=== PATIENT | female | born 1930 | race Caucasian/White ===

== ENCOUNTER 2022-04-16 19:29 | Inpatient (IN) ==
[2022-04-16] MEDS ORDERED: SODIUM CHLORIDE 0.9% 500 ML IV STA (19:39)
[2022-04-16] MEDS ORDERED: fentaNYL citrate 100 MCG/2 ML VIAL IV PRN (19:39)
--- NOTE | 2022-04-16 19:57 | Emergency Department Note ---
Impression & Plan Abdominal pain, acute, right upper quadrant, Acute cholecystitis, Abnormal LFTs, Acute hyponatremia ED Provider Note NAME: RICHIE ARREDONDO AGE: 89 SEX: F : 1930 ARRIVES VIA: Ambulance INFORMANT: Patient, EMS ED PROVIDER(S): Maximiliano Alejandra DO CHIEF COMPLAINT: Epigastric pain HPI: The patient is an 89-year-old female who presented to the emergency department for an evaluation of epigastric pain. She describes pain in her l ower chest and upper abdomen. She states the pain began almost a week ago. Its been intermittent. It waxes and wanes. The patient notices pain worsening after eating. She notices the pain in her back as well. She said no fever. She denies having any chest pain or trouble breathing. She is often seen by her family doctor. The pain worsened this evening so she called 911. She received Toradol and Zofran prior to arrival and at this time is pain-free. ROS: See above HPI for pertinent positives & negatives. A total of 10 systems reviewed and were otherwise negative. PAST MEDICAL HISTORY: See Below PAST SURGICAL HISTORY: See Below FAMILY HISTORY: See Below SOCIAL HISTORY: See Below HOME MEDICATIONS: See Below ALLERGIES: See Below VITALS: See Below PHYSICAL EXAMINATION: GENERAL: Patient is awake alert in no acute distress patient is resting comfortably and showing no signs of anxiety EYES: The conjunctivae are clear. The pupils are round and reactive. EARS, NOSE, MOUTH AND THROAT: The nose is without any evidence of any deformity. Mucous membranes are moist. Tongue is midline. NECK: The neck is nontender and supple. RESPIRATORY: Normal respiratory effort is noted there is no evidence of wheezing rhonchi or rales CARDIOVASCULAR: Regular rate and rhythm noted there no murmurs rubs or gallops normal S1 normal S2. GASTROINTESTINAL: The abdomen is soft and mildly distended. There is right upper quadrant and epigastric pain to palpation which is moderate. There is mild guarding in the right upper quadrant. MUSCULOSKELETAL/EXTREMITIES: There is no evidence of gross deformity full range of motion is noted in the hips and shoulders. SKIN: There is no obvious evidence of any rash. There are no petechiae, pallor or cyanosis noted. NEUROLOGIC: Patient is awake alert and oriented x3 MEDICAL DECISION MAKING: The patient is an 89-year-old female who presented to the emergency department for an evaluation of upper abdominal pain. The patient states that her pain is postprandial. The patient's history and physical exam due appear to be more consistent with gallbladder pathology. She has a very dilated gallbladder on CT. Given her laboratory findings I do feel this may be consistent with cholecystitis. [facility] the [facility] have agreed to evaluate the patient in the emergency department for further management and disposition. Triage Nursing notes reviewed. Prior medical records reviewed Vital Signs: reviewed and remarkable for elevated blood pressure. Differential diagnosis: Etiologies such as appendicitis, diverticulitis, obstruction, inflammatory bowel disease, renal colic, PUD, biliary pathology, pancreatitis, mesenteric ischemia, aortic pathology, infections, genitourinary, UTI, perforated viscus, as well as others were entertained. ER treatment provided: See below Diagnostics interpreted by me: ECG: EKG was obtained in the emergency department. My interpretation is normal sinus rhythm at 88 bpm. There is no ectopy. There is no acute ST segment abnormalities noted. LVH was noted by voltage criteria. This was compared to a tracing from October 31, 2018. No changes were noted. Cardiac Monitoring: An order was placed for continuous cardiac monitoring. The monitor shows a rate of 99 bpm with sinus rhythm. Laboratory studies: As stated above and show below. Imaging studies: See below Consultation(s): I discussed this case with Dr. Parks who [facility] I discussed this case with Jean-Claude Hankins who is on for the general surgical group. Past Med/Surg History Medical History (Updated 04/16/22 @ 23:29 by Maximiliano Alejandra DO) Hypertension Migraines Family History Other Family history non-contributory Social History Smoking Status: Never smoker Preferred Language: Turkmen Feels Safe at Home: Yes Allergies Allergies Allergy/AdvReac Type Severity Reaction Status Date / Time doxycycline Allergy Intermediate RED ALL Verified 04/16/22 20:11 OVER Sulfa (Sulfonamide Allergy Unknown CAN'T Verified 04/16/22 20:11 Antibiotics) REMEMBER Penicillins AdvReac Severe nausea/vomi Verified 04/16/22 20:11 ting Home Meds Home Medications Medication Instructions Recorded Confirmed Magnesium-Zinc 1 tab PO DAILY 10/31/18 04/16/22 ascorbic acid (vitamin C) 500 mg 500 mg PO DAILY 10/31/18 04/16/22 tablet (Vitamin C) levothyroxine 25 mcg tablet 25 mcg PO DAILYBB 10/31/18 04/16/22 lisinopril 30 mg tablet 30 mg PO DAILY 10/31/18 04/16/22 loratadine 10 mg tablet 10 mg PO DAILY PRN Allergy Symptoms 10/31/18 04/16/22 metoprolol tartrate 50 mg tablet 50 mg PO BID 10/31/18 04/16/22 omeprazole 20 mg capsule,delayed 20 mg PO BID 10/31/18 04/16/22 release polyethylene glycol 3350 17 17 g PO DAILY PRN Constipation 10/31/18 04/16/22 gram/dose oral powder riboflavin (vitamin B2) 400 mg 400 mg PO DAILY 10/31/18 04/16/22 tablet amlodipine 2.5 mg tablet 2.5 mg PO DAILY 04/16/22 04/16/22 nystatin 100,000 unit/gram topical 1 applic topical TID PRN Skin 04/16/22 04/16/22 powder Irritation Results & Data (ED) Vital Signs Vital Signs - 24 hr 04/16/22 19:37 04/16/22 19:37 04/16/22 19:37 Temperature 36.9 C Temperature Source Oral Pulse Rate 88 Pulse Rate [Apical] 88 Pulse Rhythm Regular Pulse Rhythm [Apical] Regular Pulse Strength Normal Pulse Strength [Apical] Normal Respiratory Rate 20 20 Respiratory Effort / Characteristics Non-Labored Non-Labored Respiratory Depth Normal Normal Respiratory Pattern Regular Regular Blood Pressure 191/86 H Blood Pressure [Right Arm] 191/86 H Blood Pressure Mean 121 Blood Pressure Mean [Right Arm] 121 Pulse Oximetry 96 96 96 Oxygen Delivery Method Room Air Room Air Room Air Sepsis Recent Fever Within 48 Hours No Sepsis New/Unexplained Change in Mental Status No Sepsis Action Taken by Nursing No Action Required 04/16/22 19:39 04/16/22 21:00 04/16/22 22:28 Temperature Temperature Source Pulse Rate Pulse Rate [Apical] 96 H 99 H Pulse Rhythm Pulse Rhythm [Apical] Regular Pulse Strength Pulse Strength [Apical] Normal Normal Respiratory Rate 19 19 Respiratory Effort / Characteristics Non-Labored Respiratory Depth Normal Normal Respiratory Pattern Regular Blood Pressure Blood Pressure [Right Arm] 169/72 H 171/105 H Blood Pressure Mean Blood Pressure Mean [Right Arm] 104 127 Pulse Oximetry 96 94 95 Oxygen Delivery Method Room Air Room Air Room Air Sepsis Recent Fever Within 48 Hours Sepsis New/Unexplained Change in Mental Status Sepsis Action Taken by Long Term Medications Current Medication List: was personally reviewed by me Laboratory Data Attestation: I reviewed the patient's lab results. Result diagrams: 04/16/22 19:45 04/16/22 21:32 Lab Results 04/16/22 04/16/22 04/16/22 Range/Units 19:45 19:45 19:45 WBC 15.21 H (4.8-10.8) K/ul RBC 4.75 (3.93-5.22) M/uL Hgb 13.9 (12.0-16.0) g/dl Hct 41.1 (34.1-44.9) % MCV 86.5 (80.0-100.0) fL MCH 29.3 (25.0-34.0) pg MCHC 33.8 (32.0-36.0) g/dL RDW Std Deviation 42.5 (36.4-46.3) fL RDW Coeff of Naresh 13.4 (11.5-14.5) % Plt Count 327 (130-400) K/uL MPV 10.2 (9.4-12.3) fL Immature Gran % (Auto) 0.3 % Neut % (Auto) 91.3 % Lymph % (Auto) 6.0 % Gaines % (Auto) 2.0 % Eos % (Auto) 0.1 % Baso % (Auto) 0.3 % Neut # (Auto) 13.89 H (1.4-6.5) K/uL Lymph # (Auto) 0.91 L (1.2-3.4) K/uL Gaines # (Auto) 0.30 (0.24-0.82) K/uL Eos # (Auto) 0.01 (0-0.50) K/uL Baso # (Auto) 0.05 (0-0.2) K/uL Immature Gran # (Auto) 0.05 H (0.00-0.02) K/uL PT Cancelled INR Cancelled APTT Cancelled PTT Ratio Cancelled Sodium TNP Potassium TNP Chloride 93 L (98-107) mmol/L Carbon Dioxide 22 (21-32) mmol/L Anion Gap TNP BUN 13 (6-23) mg/dl Creatinine 0.53 L (0.6-1.2) mg/dl Est Cr Clr Drug Dosing 107.1 ml/min Est GFR ( Amer) 97.6 ml/min Est GFR (Non-Af Amer) 84.2 ml/min BUN/Creatinine Ratio 24.5 H (10-20) Glucose 140 H (70-99(Fasting)) mg/dl Calcium 8.9 (8.5-10.1) mg/dl Magnesium (1.7-2.4) mg/dl Total Bilirubin 2.8 H (0.2-1.0) mg/dl AST TNP ALT 286 H (7-52) U/L Alkaline Phosphatase 325 H (34-104) U/L Troponin I High Sens 10.1 (0-14) pg/ml Total Protein 7.5 (6.0-8.3) gm/dl Albumin 4.1 (3.4-5.0) gm/dl Globulin 3.4 (2.5-4.0) gm/dl Albumin/Globulin Ratio 1.2 (0.9-2) Lipase 24 (11-82) U/L Urine Color Urine Appearance (Clear) Urine pH (4.5-7.5) Ur Specific [place] (1.000-1.030) Urine Protein (Negative) Urine Glucose (UA) (Negative) Urine Ketones (Negative) Urine Blood (Negative) Urine Nitrite (Negative) Urine Bilirubin (Negative) Urine Urobilinogen (Negative) Ur Leukocyte Esterase (Negative) SARS-CoV-2, RNA, NAAT (NEGATIVE) 04/16/22 04/16/22 04/16/22 Range/Units 19:53 21:32 21:32 WBC (4.8-10.8) K/ul RBC (3.93-5.22) M/uL Hgb (12.0-16.0) g/dl Hct (34.1-44.9) % MCV (80.0-100.0) fL MCH (25.0-34.0) pg MCHC (32.0-36.0) g/dL RDW Std Deviation (36.4-46.3) fL RDW Coeff of Naresh (11.5-14.5) % Plt Count (130-400) K/uL MPV (9.4-12.3) fL Immature Gran % (Auto) % Neut % (Auto) % Lymph % (Auto) % Gaines % (Auto) % Eos % (Auto) % Baso % (Auto) % Neut # (Auto) (1.4-6.5) K/uL Lymph # (Auto) (1.2-3.4) K/uL Gaines # (Auto) (0.24-0.82) K/uL Eos # (Auto) (0-0.50) K/uL Baso # (Auto) (0-0.2) K/uL Immature Gran # (Auto) (0.00-0.02) K/uL PT 11.4 INR 1.1 APTT 34.3 H PTT Ratio 1.2 Sodium 125 L Potassium 4.0 Chloride (98-107) mmol/L Carbon Dioxide (21-32) mmol/L Anion Gap BUN (6-23) mg/dl Creatinine (0.6-1.2) mg/dl Est Cr Clr Drug Dosing ml/min Est GFR ( Amer) ml/min Est GFR (Non-Af Amer) ml/min BUN/Creatinine Ratio (10-20) Glucose (70-99(Fasting)) mg/dl Calcium (8.5-10.1) mg/dl Magnesium (1.7-2.4) mg/dl Total Bilirubin (0.2-1.0) mg/dl AST 288 H ALT (7-52) U/L Alkaline Phosphatase (34-104) U/L Troponin I High Sens (0-14) pg/ml Total Protein (6.0-8.3) gm/dl Albumin (3.4-5.0) gm/dl Globulin (2.5-4.0) gm/dl Albumin/Globulin Ratio (0.9-2) Lipase (11-82) U/L Urine Color Urine Appearance (Clear) Urine pH (4.5-7.5) Ur Specific [place] (1.000-1.030) Urine Protein (Negative) Urine Glucose (UA) (Negative) Urine Ketones (Negative) Urine Blood (Negative) Urine Nitrite (Negative) Urine Bilirubin (Negative) Urine Urobilinogen (Negative) Ur Leukocyte Esterase (Negative) SARS-CoV-2, RNA, NAAT NEGATIVE (NEGATIVE) 04/16/22 04/16/22 Range/Units 21:32 22:22 WBC (4.8-10.8) K/ul RBC (3.93-5.22) M/uL Hgb (12.0-16.0) g/dl Hct (34.1-44.9) % MCV (80.0-100.0) fL MCH (25.0-34.0) pg MCHC (32.0-36.0) g/dL RDW Std Deviation (36.4-46.3) fL RDW Coeff of Naresh (11.5-14.5) % Plt Count (130-400) K/uL MPV (9.4-12.3) fL Immature Gran % (Auto) % Neut % (Auto) % Lymph % (Auto) % Gaines % (Auto) % Eos % (Auto) % Baso % (Auto) % Neut # (Auto) (1.4-6.5) K/uL Lymph # (Auto) (1.2-3.4) K/uL Gaines # (Auto) (0.24-0.82) K/uL Eos # (Auto) (0-0.50) K/uL Baso # (Auto) (0-0.2) K/uL Immature Gran # (Auto) (0.00-0.02) K/uL PT INR APTT PTT Ratio Sodium Potassium Chloride (98-107) mmol/L Carbon Dioxide (21-32) mmol/L Anion Gap BUN (6-23) mg/dl Creatinine (0.6-1.2) mg/dl Est Cr Clr Drug Dosing ml/min Est GFR ( Amer) ml/min Est GFR (Non-Af Amer) ml/min BUN/Creatinine Ratio (10-20) Glucose (70-99(Fasting)) mg/dl Calcium (8.5-10.1) mg/dl Magnesium 1.6 L (1.7-2.4) mg/dl Total Bilirubin (0.2-1.0) mg/dl AST ALT (7-52) U/L Alkaline Phosphatase (34-104) U/L Troponin I High Sens (0-14) pg/ml Total Protein (6.0-8.3) gm/dl Albumin (3.4-5.0) gm/dl Globulin (2.5-4.0) gm/dl Albumin/Globulin Ratio (0.9-2) Lipase (11-82) U/L Urine Color Yellow Urine Appearance Clear (Clear) Urine pH 7.0 (4.5-7.5) Ur Specific [place] 1.031 H (1.000-1.030) Urine Protein Negative (Negative) Urine Glucose (UA) Negative (Negative) Urine Ketones Negative (Negative) Urine Blood Negative (Negative) Urine Nitrite Negative (Negative) Urine Bilirubin Negative (Negative) Urine Urobilinogen Negative (Negative) Ur Leukocyte Esterase Negative (Negative) SARS-CoV-2, RNA, NAAT (NEGATIVE) Administered Medications Discontinued Medications Amlodipine Besylate (Amlodipine Besylate 5 Mg Tab) 2.5 mg PO NOW STA Stop: 04/16/22 22:10 Last Admin: 04/16/22 22:13 Dose: 2.5 mg Documented By: BREE Sodium Chloride (Nss) 500 mls @ 999 mls/hr IV .Q31M STA Stop: 04/16/22 20:09 Last Infusion: 04/16/22 20:30 Dose: 0 mls/hr Documented By: Admin: 04/16/22 19:57 Dose: 999 mls/hr Documented By: BREE Cefoxitin Sodium (Mefoxin) 2,000 mg in 60 mls @ 100 mls/hr IV NOW STA Stop: 04/16/22 21:41 Last Infusion: 04/16/22 21:59 Dose: 0 mls/hr Documented By: Admin: 04/16/22 21:18 Dose: 100 mls/hr Documented By: BREE Ioversol (Optiray 350 100ml) 87 ml IV ONCE ONE Stop: 04/16/22 21:01 Last Admin: 04/16/22 21:00 Dose: 87 ml Documented By: HEATHER Metoprolol Tartrate (Metoprolol Tartrate 50 Mg Tab) 50 mg PO NOW STA Stop: 04/16/22 22:15 Last Admin: 04/16/22 22:28 Dose: 50 mg Documented By: BREE Imaging Data Radiologist's Impression: Chest X-Ray 04/16/22 19:39 SINGLE VIEW CHEST CLINICAL HISTORY: Epigastric abdominal pain. FINDINGS: An AP, portable, upright chest radiograph is compared to study dated 10/31/2018. The cardiomediastinal silhouette is top normal for projection noting atherosclerotic calcification of the thoracic aorta. The mitral annulus is densely calcified. Chronic interstitial thickening similar to previous. The lungs and pleural spaces are clear. No pneumothorax is seen. The skeletal structures are osteopenic. The bony thorax is grossly intact. IMPRESSION: No active disease in the chest. ACT 112: Negative or not required by law. Electronically signed by: Brennen Venegas M.D. 04/16/2022 8:07 PM Patient: RICHIE ARREDONDO (Female) : [birth year] Status: ER Date: 04/16/22 21:03 Room #: History: abd pain Slices: [id number] Priors: Tech: Lindsey Mcguire @ [phone] Exams: CT ABDOMEN & PELVIS With Contrast Contrast: IV Amt: 87ml Accession Numbers: [id number] Referring Physician: REFERRED SELF Preliminary Findings Only See Final Report For Complete Findings CT ABDOMEN & PELVIS With Contrast: The gallbladder is very distended but shows no clear evidence of wall thickening or surrounding edema or fluid. Some high density is seen along with the medial wall of the gallbladder. This is not clearly stones, as this is not the dependent portion of the gallbladder. There is a large cystic mass in the pelvis centered slightly to the right of midline. This measures 10.3 x 14.0 x 9.1 cm. This is mostly homogeneous fluid density but shows some small calcifications in the wall. This is likely ovarian in nature. Recommend pelvic MR (preferred) or pelvic US to further characterize this cyst. Small to moderate sized hiatus hernia. No prior studies are available for comparison. Radiologist: Fredy Singh MD Study ready at 23:04 and initial results transmitted at 23:12 Discharge Plan Visit Data Chief Complaint: Abdominal Pain ED Provider: Maximiliano Alejandra Discharge Problem: Abdominal pain, acute, right upper quadrant, Acute cholecystitis, Abnormal LFTs, Acute hyponatremia Patient Disposition: Being Evaluated by Hospitalist Forms Stand Alone Forms: My [facility] Prescriptions Prescriptions: No Action levothyroxine 25 mcg tablet 25 mcg PO DAILYBB Rx Instructions: TAKE THIS MEDICATION AT LEAST 30 MINUTES BEFORE BREAKFAST OR ANY OTHER MEDICATIONS ascorbic acid (vitamin C) [Vitamin C] 500 mg Tablet 500 mg PO DAILY metoprolol tartrate 50 mg tablet 50 mg PO BID lisinopril 30 mg tablet 30 mg PO DAILY omeprazole 20 mg capsule,delayed release(DR/EC) 20 mg PO BID polyethylene glycol 3350 17 gram/dose Powder 17 g PO DAILY PRN (Reason: Constipation) loratadine 10 mg tablet 10 mg PO DAILY PRN (Reason: Allergy Symptoms) riboflavin (vitamin B2) 400 mg tablet 400 mg PO DAILY Magnesium-Zinc 1 tab PO DAILY amlodipine 2.5 mg tablet 2.5 mg PO DAILY nystatin 100,000 unit/gram powder 1 applic TOPICAL TID PRN (Reason: Skin Irritation) Referrals Referrals: Tony Hein MD [Primary Care Provider] -
[2022-04-16 20:07] LABS: Hematocrit (blood only) 41.1 % (34.1-44.9); Hemoglobin 13.9 g/dl (12.0-16.0); Mean Corpuscular Hemoglobin 29.3 pg (25.0-34.0); Mean Corpuscular Hgb Conc 33.8 g/dL (32.0-36.0); Mean Corpuscular Volume 86.5 fL (80.0-100.0); Mean Platelet Volume 10.2 fL (9.4-12.3); Platelet Count 327 K/uL (130-400); RDW Coefficient of Variation 13.4 % (11.5-14.5); RDW Standard Deviation 42.5 fL (36.4-46.3); Red Blood Count 4.75 M/uL (3.93-5.22); White Blood Count 15.21 K/ul (4.8-10.8)
--- NOTE | 2022-04-16 20:08 | XRay Report ---
SINGLE VIEW CHEST CLINICAL HISTORY: Epigastric abdominal pain. FINDINGS: An AP, portable, upright chest radiograph is compared to study dated 10/31/2018. The cardiome diastinal silhouette is top normal for projection noting atherosclerotic calcification of the thoraci c aorta. The mitral annulus is densely calcified. Chronic interstitial thickening similar to previous . The lungs and pleural spaces are clear. No pneumothorax is seen. The skeletal structures are osteop enic. The bony thorax is grossly intact. IMPRESSION: No active disease in the chest. ACT 112: Negative or not required by law. Electronically signed by: Brennen Venegas M.D. 04/16/2022 8:07 PM
[2022-04-16 20:35] LABS: Troponin I High Sensitivity 10.1 pg/ml (0-14)
[2022-04-16 20:38] LABS: Alanine Aminotransferase 286 U/L (7-52); Albumin Globulin Ratio 1.2 (0.9-2); Albumin Level 4.1 gm/dl (3.4-5.0); Alkaline Phosphatase 325 U/L (34-104); BUN Creatinine Ratio 24.5 (10-20); Bilirubin,Total 2.8 mg/dl (0.2-1.0); Blood Urea Nitrogen 13 mg/dl (6-23); Calcium 8.9 mg/dl (8.5-10.1); Carbon Dioxide 22 mmol/L (21-32); Chloride 93 mmol/L (98-107); Creatinine Clr Calc Pharmacy 107.1 ml/min; Est GFR (African American) 97.6 ml/min; Est GFR (Non-African American) 84.2 ml/min; Globulin 3.4 gm/dl (2.5-4.0); Glucose 140 mg/dl (70-99(Fasting)); Lipase 24 U/L (11-82); Total Protein 7.5 gm/dl (6.0-8.3)
[2022-04-16] MEDS ORDERED: OPTIRAY 350 100ml IV ONE (21:00)
[2022-04-16] MEDS ORDERED: cefOXitin 2,000 MG/60 ML BAG IV STA (21:06)
[2022-04-16 21:10] LABS: Basophils # (auto) 0.05 K/uL (0-0.2); Basophils % (auto) 0.3 %; Eosinophils # (auto) 0.01 K/uL (0-0.50); Eosinophils % (auto) 0.1 %; Immature Granulocytes # (auto) 0.05 K/uL (0.00-0.02); Immature Granulocytes % (auto) 0.3 %; Lymphocytes # (auto) 0.91 K/uL (1.2-3.4); Neutrophils # (auto) 13.89 K/uL (1.4-6.5); Neutrophils % (auto) 91.3 %
[2022-04-16 21:58] LABS: INR 1.1 (0.9-1.1); Partial Thromboplastin Ratio 1.2; Partial Thromboplastin Time 34.3 Seconds (21.0-31.0); Prothrombin Time 11.4 Seconds (9.0-12.0)
[2022-04-16] MEDS ORDERED: amLODIPine BESYLATE 5 MG TAB PO STA (22:09)
[2022-04-16] MEDS ORDERED: METOPROLOL TARTRATE 50 MG TAB PO STA (22:14)
[2022-04-16 22:30] LABS: Appearance Urine Clear (Clear); Bilirubin Urine Negative (Negative); Blood Urine Negative (Negative); Color Urine Yellow; Glucose Urine UA Negative (Negative); Ketones Urine Negative (Negative); Leukocyte Esterase Urine Negative (Negative); Nitrite Urine Negative (Negative); Protein Urine Negative (Negative); Specific Gravity Urine 1.031 (1.000-1.030); Urobilinogen Urine Negative (Negative)
--- NOTE | 2022-04-16 22:41 | History & Physical Report ---
Date of Service April 16, 2022 Assessment & Plan (1) Sepsis: Plan: Possible cholecystitis Rule out biliary duct obstruction given abnormal LFTs Hypertensive urgency secondary to discomfort, anxiety Acute on chronic hyponatremia secondary to illness hypothyroidism, euthyroid as of today's TSH hx GERD Hyperglycemia rule out DM Pelvic mass on initial CT read Medical telemetry given BP elevation Analgesia, antiemetic as needed, titrate home BP meds CS, Ertapenem Surgery consult Re: Possible cholecystitis (ER provider already in touch with service.) N.p.o. status recommended for now by service. MRCP Re: Abnormal LFTs Careful correction of sodium, hyponatremia work-up Pelvic ultrasound Re: Pelvic mass Further management pending above imaging results Check hemoglobin A1c DVT prophylaxis. Lovenox subcu Full code Patient daughter requesting updates from providers. Ms. Reina Resendiz, contact #[phone]. Text document was generated using [employer] voice recognition software. It may contain grammatical or spelling errors. Kindly contact undersigned for clarification of any documentation item in question. History of Present Illness Chief Complaint: Abdominal pain Primary Care Provider: Tony Hein MD History obtained from patient, family, and records. Medical history significant for hypertension, hypothyroidism, chronic hyponatremia, GERD, migraine, mood disorder. Last confinement 2017 for headache, uncontrolled hypertension. 6 days history of achy epigastric pain going to her chest somewhat worse after eating. Some chills. No shortness of breath. No headache symptoms. No prior episodes. Cefoxitin administered at the ER for possible cholecystitis. Highest SBP at the ER 190s. Medical History as above Surgical History : Cataract surgery Family History : Ovarian cancer, colon cancer, dementia Personal/Social history : Non-smoker, no EtOH intake, retired from cleaning work Allergies Allergy/AdvReac Type Severity Reaction Status Date / Time doxycycline Allergy Intermediate RED ALL Verified 04/16/22 20:11 OVER Sulfa (Sulfonamide Allergy Unknown CAN'T Verified 04/16/22 20:11 Antibiotics) REMEMBER Penicillins AdvReac Severe nausea/vomi Verified 04/16/22 20:11 ting Home Medications Medication Instructions Recorded Confirmed Type Magnesium-Zinc 1 tab PO DAILY 10/31/18 04/16/22 History ascorbic acid (vitamin C) 500 mg 500 mg PO DAILY 10/31/18 04/16/22 History tablet (Vitamin C) levothyroxine 25 mcg tablet 25 mcg PO DAILYBB 10/31/18 04/16/22 History lisinopril 30 mg tablet 30 mg PO DAILY 10/31/18 04/16/22 History loratadine 10 mg tablet 10 mg PO DAILY PRN Allergy Symptoms 10/31/18 04/16/22 History metoprolol tartrate 50 mg tablet 50 mg PO BID 10/31/18 04/16/22 History omeprazole 20 mg capsule,delayed 20 mg PO BID 10/31/18 04/16/22 History release polyethylene glycol 3350 17 17 g PO DAILY PRN Constipation 10/31/18 04/16/22 History gram/dose oral powder riboflavin (vitamin B2) 400 mg 400 mg PO DAILY 10/31/18 04/16/22 History tablet amlodipine 2.5 mg tablet 2.5 mg PO DAILY 04/16/22 04/16/22 History nystatin 100,000 unit/gram topical 1 applic topical TID PRN Skin 04/16/22 04/16/22 History powder Irritation Past Med/Surg History Medical History (Updated 04/18/22 @ 15:05 by Abebe Jarrett MD) Hypertension Migraines Family History Other Family history non-contributory Social History Smoking Status: Never smoker Hx Alcohol Use: No Hx Substance Use: No Preferred Language: Bulgarian Communication Ability: Effective Automobile [employer]or Required: No Beliefs That Will Affect Care: None Current Living Situation: Alone Other Information That Helps Us Care for You: No Feels Safe at Home: Yes Safety Concerns: Feels Safe At This Time Assistive Devices: Walker Review of Systems Review of Systems: As per HPI, all other systems reviewed and negative Physical Exam Physical Exam: GENERAL: uncomfortable, anxious, slightly hard of hearing, looks younger for stated age, no respiratory distress SKIN: Normal color, warm HEENT: Bespectacled, [place] palpebral conjunctivae, no ptosis, dry buccal mucosa NECK : Supple, no tenderness CHEST : CTA, no tenderness HEART : RRR, no obvious murmurs ABDOMEN: Some distention, epigastric tenderness EXTREMITIES : Minimal LE swelling, no LE tenderness, no other conspicuous deformities noted NEUROLOGIC : Coherent, no facial asymmetry, slightly hard of hearing, no other gross focality Results & Data Results & Data ([facility]) Vital Signs (Past 12 Hours) Vital Signs Temp Pulse Pulse Resp BP BP Pulse Ox 04/16/22 22:28 99 H 19 171/105 H 95 04/16/22 21:00 96 H 19 169/72 H 94 04/16/22 19:39 96 04/16/22 19:37 96 04/16/22 19:37 88 20 191/86 H 96 04/16/22 19:37 36.9 C 88 20 191/86 H 96 O2 Del Method 04/16/22 22:28 Room Air 04/16/22 21:00 Room Air 04/16/22 19:39 Room Air 04/16/22 19:37 Room Air 04/16/22 19:37 Room Air 04/16/22 19:37 Room Air Laboratory Results Laboratory Results WBC 15.21 K/ul (4.8-10.8) H 04/16/22 19:45 RBC 4.75 M/uL (3.93-5.22) 04/16/22 19:45 Hgb 13.9 g/dl (12.0-16.0) 04/16/22 19:45 Hct 41.1 % (34.1-44.9) 04/16/22 19:45 MCV 86.5 fL (80.0-100.0) 04/16/22 19:45 MCH 29.3 pg (25.0-34.0) 04/16/22 19:45 MCHC 33.8 g/dL (32.0-36.0) 04/16/22 19:45 RDW Std Deviation 42.5 fL (36.4-46.3) 04/16/22 19:45 RDW Coeff of Naresh 13.4 % (11.5-14.5) 04/16/22 19:45 Plt Count 327 K/uL (130-400) 04/16/22 19:45 MPV 10.2 fL (9.4-12.3) 04/16/22 19:45 Immature Gran % (Auto) 0.3 % 04/16/22 19:45 Neut % (Auto) 91.3 % 04/16/22 19:45 Lymph % (Auto) 6.0 % 04/16/22 19:45 [place] % (Auto) 2.0 % 04/16/22 19:45 Eos % (Auto) 0.1 % 04/16/22 19:45 Baso % (Auto) 0.3 % 04/16/22 19:45 Neut # (Auto) 13.89 K/uL (1.4-6.5) H 04/16/22 19:45 Lymph # (Auto) 0.91 K/uL (1.2-3.4) L 04/16/22 19:45 [place] # (Auto) 0.30 K/uL (0.24-0.82) 04/16/22 19:45 Eos # (Auto) 0.01 K/uL (0-0.50) 04/16/22 19:45 Baso # (Auto) 0.05 K/uL (0-0.2) 04/16/22 19:45 Immature Gran # (Auto) 0.05 K/uL (0.00-0.02) H 04/16/22 19:45 PT 11.4 Seconds (9.0-12.0) 04/16/22 21:32 INR 1.1 (0.9-1.1) 04/16/22 21:32 APTT 34.3 Seconds (21.0-31.0) H 04/16/22 21:32 PTT Ratio 1.2 04/16/22 21:32 Sodium 125 mmol/L (136-145) L 04/16/22 21:32 Potassium 4.0 mmol/L (3.5-5.1) 04/16/22 21:32 Chloride 93 mmol/L (98-107) L 04/16/22 19:45 Carbon Dioxide 22 mmol/L (21-32) 04/16/22 19:45 Anion Gap TNP 04/16/22 19:45 BUN 13 mg/dl (6-23) 04/16/22 19:45 Creatinine 0.53 mg/dl (0.6-1.2) L 04/16/22 19:45 Est Cr Clr Drug Dosing 107.1 ml/min 04/16/22 19:45 Est GFR ( Amer) 97.6 ml/min 04/16/22 19:45 Est GFR (Non-Af Amer) 84.2 ml/min 04/16/22 19:45 BUN/Creatinine Ratio 24.5 (10-20) H 04/16/22 19:45 Glucose 140 mg/dl (70-99(Fasting)) H 04/16/22 19:45 Calcium 8.9 mg/dl (8.5-10.1) 04/16/22 19:45 Magnesium 1.6 mg/dl (1.7-2.4) L 04/16/22 21:32 Total Bilirubin 2.8 mg/dl (0.2-1.0) H 04/16/22 19:45 AST 288 U/L (13-39) H 04/16/22 21:32 ALT 286 U/L (7-52) H 04/16/22 19:45 Alkaline Phosphatase 325 U/L (34-104) H 04/16/22 19:45 Troponin I High Sens 10.1 pg/ml (0-14) 04/16/22 19:45 Total Protein 7.5 gm/dl (6.0-8.3) 04/16/22 19:45 Albumin 4.1 gm/dl (3.4-5.0) 04/16/22 19:45 Globulin 3.4 gm/dl (2.5-4.0) 04/16/22 19:45 Albumin/Globulin Ratio 1.2 (0.9-2) 04/16/22 19:45 Lipase 24 U/L (11-82) 04/16/22 19:45 Urine Color Yellow 04/16/22 22:22 Urine Appearance Clear (Clear) 04/16/22 22:22 Urine pH 7.0 (4.5-7.5) 04/16/22 22:22 Ur Specific [place] 1.031 (1.000-1.030) H 04/16/22 22:22 Urine Protein Negative (Negative) 04/16/22 22:22 Urine Glucose (UA) Negative (Negative) 04/16/22 22:22 Urine Ketones Negative (Negative) 04/16/22 22: Urine Blood Negative (Negative) 04/16/22 22:22 Urine Nitrite Negative (Negative) 04/16/22 22:22 Urine Bilirubin Negative (Negative) 04/16/22 22:22 Urine Urobilinogen Negative (Negative) 04/16/22 22: Ur Leukocyte Esterase Negative (Negative) 04/16/22 22:22 SARS-CoV-2, RNA, NAAT NEGATIVE (NEGATIVE) 04/16/22 19:53 Impressions Chest X-Ray 04/16/22 19:39 SINGLE VIEW CHEST CLINICAL HISTORY: Epigastric abdominal pain. FINDINGS: An AP, portable, upright chest radiograph is compared to study dated 10/31/2018. The cardiomediastinal silhouette is top normal for projection noting atherosclerotic calcification of the thoracic aorta. The mitral annulus is densely calcified. Chronic interstitial thickening similar to previous. The lungs and pleural spaces are clear. No pneumothorax is seen. The skeletal structures are osteopenic. The bony thorax is grossly intact. IMPRESSION: No active disease in the chest. ACT 112: Negative or not required by law. Electronically signed by: Brennen Venegas M.D. 04/16/2022 8:[address] abdomen pelvis initial read: The gallbladder is verydistended but shows no clear evidence of wall thickening or surrounding edema or fluid. Some high densityis seen along with the medial wall of the gallbladder. This is not clearlystones, as this is not the dependent portion of the gallbladder. There is a large cystic mass in the pelvis centered slightlyto the right of midline. This measures 10.3 x 14.0 x 9.1 cm. This is mostlyhomogeneous fluid densitybut shows some small calcifications in the wall. This is likelyovarian in nature. Recommend pelvic MR (preferred) or pelvic US to further characterize this cyst. Small to moderate sized hiatus hernia. No prior studies are available for comparison. EKG as per my interpretation :Rate 90, NSR, LAD, LAFB, LVH, septal infarct, T wave abnormalities inferior leads
[2022-04-16] MEDS ORDERED: LORazepam 0.5 MG TAB PO PRN (22:52)
[2022-04-16] MEDS ORDERED: traMADol HCL 50 MG TABLET PO PRN (22:52)
[2022-04-16] MEDS ORDERED: MoRPHine SULFATE 2 MG/ML CARP IV PRN (22:54)
[2022-04-16] MEDS ORDERED: oxyCODONE HCL IR 5 MG TAB (IMMEDIATE RELEASE) PO PRN (22:56)
[2022-04-16] MEDS ORDERED: PROMETHAZINE HCL 6.25 MG in SODIUM CHLORIDE 0.9% 50 ML IV PRN (22:58)
[2022-04-16] MEDS ORDERED: SODIUM CHLORIDE 0.9% 1000ML 1,000 ML IV STA (22:58)
--- NOTE | 2022-04-16 23:09 | Surgery Consultation ---
Date of Consultation April 16, 2022 Assessment & Plan (1) Abdominal pain: I discussed the case with the treating emergency room physician he is having the patient admitted on the hospitalist service. I have also discussed the case with the hospitalist and as there is not clear-cut evidence of cholecystitis along with the patient's elevated LFTs they are planning on proceeding as follows: Serial labs will be followed Analgesia be provided Antiemetics will be provided Antibiotics in the form of ertapenem have been initiated N.p.o. status has been implemented IV fluids are being administered for hydration An MRCP will be ordered to further evaluate the biliary system Due to the cystic mass felt to be ovarian in nature a pelvic as well as transvaginal ultrasound have been requested for further evaluation Will await the results of the above studies as well as serial labs with further recommendations to follow based on these results. History of Present Illness Reason for Consultation: Abdominal pain History of Present Illness This is an 89-year-old female who presented to the emergency department secondary to epigastric pain. When asked to further describe the patient's symptoms she reported that she developed some diarrhea approximately 5 days ago and subsequently developed epigastric pain. She noticed that the pain seems to occur at night and often is times associated with meals. The patient denies any radiation of the pain and does note that in addition to being in the epigastric area is also located in the right upper quadrant. She has had associated nausea and vomiting. She denies any fevers, shakes, or chills she has never had abdominal surgery before. In the emergency department the patient had labs and imaging which I independent reviewed. A chest x-ray was negative for pneumonia. A CT scan of the abdomen and pelvis was performed. This showed a distended gallbladder but there is no clear evidence of gallbladder wall thickening or pericholecystic fluid. No clear gallstones were identified. There is also a large cystic mass in the pelvis measuring 10.3 x 4.0 x 9.1 cm. This is felt to be most likely ovarian in nature. Labs include a CBC her white blood cell count was elevated at 15.2. Hemoglobin, hematocrit, platelet count were normal. Chemistry profile showed sodium was 125. Her potassium was normal. BUN and creatinine were 13 and 0.5. The patient's total bilirubin was elevated at 2.8. Her AST and ALT were 288 and 286. Her alkaline phosphatase was 325. Cardiac enzymes were checked and were negative. A urinalysis was negative for infection. A COVID test was negative. The patient notes that she leads a very active lifestyle able to perform almost all of her housework independently. She says with her day-to-day activities she does not get chest pain or shortness of breath. At the time of my interview she was resting comfortably in bed and she was in no distress. Allergies Allergy/AdvReac Type Severity Reaction Status Date / Time doxycycline Allergy Intermediate RED ALL Verified 04/16/22 20:11 OVER Sulfa (Sulfonamide Allergy Unknown CAN'T Verified 04/16/22 20:11 Antibiotics) REMEMBER Penicillins AdvReac Severe nausea/vomi Verified 04/16/22 20:11 ting Home Medications Medication Instructions Recorded Confirmed Type Magnesium-Zinc 1 tab PO DAILY 10/31/18 04/16/22 History ascorbic acid (vitamin C) 500 mg 500 mg PO DAILY 10/31/18 04/16/22 History tablet (Vitamin C) levothyroxine 25 mcg tablet 25 mcg PO DAILYBB 10/31/18 04/16/22 History lisinopril 30 mg tablet 30 mg PO DAILY 10/31/18 04/16/22 History loratadine 10 mg tablet 10 mg PO DAILY PRN Allergy Symptoms 10/31/18 04/16/22 History metoprolol tartrate 50 mg tablet 50 mg PO BID 10/31/18 04/16/22 History omeprazole 20 mg capsule,delayed 20 mg PO BID 10/31/18 04/16/22 History release polyethylene glycol 3350 17 17 g PO DAILY PRN Constipation 10/31/18 04/16/22 History gram/dose oral powder riboflavin (vitamin B2) 400 mg 400 mg PO DAILY 10/31/18 04/16/22 History tablet amlodipine 2.5 mg tablet 2.5 mg PO DAILY 04/16/22 04/16/22 History nystatin 100,000 unit/gram topical 1 applic topical TID PRN Skin 04/16/22 04/16/22 History powder Irritation Patient History Medical History (Updated 04/16/22 @ 23:29 by Maximiliano Alejandra DO) Hypertension Migraines Family History Other Family history non-contributory Social History Smoking Status: Never smoker Preferred Language: Mongolian Feels Safe at Home: Yes Review of Systems Constitutional: no fever and no chills Eyes: no eye pain Ear, Nose, Mouth, Throat: no ear pain Respiratory: no cough and no dyspnea Cardiovascular: no chest pain Gastrointestinal: + abdominal pain, + nausea and + vomiting Genitourinary: no dysuria Musculoskeletal: no back pain Integumentary: no rash Neurologic: no localized weakness Physical Exam Constitutional: WD/WN, vitals as above Eyes: + anicteric sclerae ENMT: Ears: no hearing impairment and no external ear abnormality Mouth: no oropharynx abnormality Neck: trachea midline Respiratory: normal respiratory effort; no respiratory distress and no labored breathing Cardiovascular: Rate/Rhythm: regular rate and regular rhythm Gastrointestinal (Abdomen): Abdomen is soft, nonrigid, and minimally distended. Bowel sounds are present. There is no rebound tenderness or guarding. The patient did have pain with palpation in the epigastric area as well as the right upper quadrant. Musculoskeletal: No calf tenderness Skin: no rashes Neurologic: moves all extremities Psychiatric: A+Ox3, euthymic affect Results & Data ([facility]) Vital Signs (Past 12 Hours) Vital Signs Temp Pulse Pulse Resp BP BP Pulse Ox 04/16/22 22:28 99 H 19 171/105 H 95 04/16/22 21:00 96 H 19 169/72 H 94 04/16/22 19:39 96 04/16/22 19:37 96 04/16/22 19:37 88 20 191/86 H 96 04/16/22 19:37 36.9 C 88 20 191/86 H 96 O2 Del Method 04/16/22 22:28 Room Air 04/16/22 21:00 Room Air 04/16/22 19:39 Room Air 04/16/22 19:37 Room Air 04/16/22 19:37 Room Air 04/16/22 19:37 Room Air PG Care Time/CCT Total # of Minutes Spent Total Time Spent with Patient: Total time spent is greater than 50% in coordination of care (as documented) at patient's floor/unit and/or counseling patient: Coding Level of Care Code 46323 Inpt Consult Level 5 Diagnoses Abdominal pain R10.9
[2022-04-16] MEDS ORDERED: POLYETHYLENE (MIRALAX) 17 GM PACK PO PRN (23:39)
[2022-04-16] MEDS ORDERED: LORATADINE 10 MG TAB PO PRN (23:39)
[2022-04-16] MEDS ORDERED: PANTOprazole 40 MG TAB PO SCH (23:45)
[2022-04-17] MEDS: MAGNESIUM SULFATE / D5W 1 GM/100 ML BAG IV SCH ×2 (00:11→02:11)
[2022-04-17] MEDS: LEVOTHYROXINE SODIUM 25 MCG TABLET PO SCH (05:31)
--- NOTE | 2022-04-17 05:41 | Surgery Progress Note ---
Date of Service April 17, 2022 Assessment & Plan (1) Abdominal pain: Plan: The patient has been admitted on the hospitalist service: CT scan in the emergency department showed a distended gallbladder without pericholecystic fluid, gallbladder wall thickening, or definite gallstones. CT also showed a cystic mass that was felt to originate from the ovaries. The patient was also noted to have elevated LFTs I discussed the case with the primary service: The possibility of cholecystitis has not been ascertained Serial labs are to be followed Due to CT scan findings the primary service has ordered an MRCP as well as a pelvic/transvaginal ultrasound, both of these studies are pending Antibiotics in the form of ertapenem have been initiated Analgesics are being provided Antiemetics are being provided The patient is currently n.p.o. IV fluids are being administered for hydration Further recommendation will be made based on pending labs/imaging studies As above. Patient seen. Minimal abdominal pain but she is nauseated with some emesis this morning. She denies any major recent weight loss. LFTs worsened today as well as her leukocytosis. Will likely need laparoscopic cholecystectomy however awaiting GI consult and will likely need ERCP first. We will continue to follow along closely. Admission and Anticipated Discharge Date Admission Date: April 16, 2022 Subjective Patient is resting in bed. She currently denies any nausea or vomiting. She does note some minor pain in the epigastric area and right upper quadrant of her abdomen. Physical Exam Gastrointestinal (Abdomen): Abdomen is soft and nondistended. There is no rebound tenderness or guarding noted. With palpation of the epigastric and right upper quadrants patient did exhibit a small amount of pain. Results & Data ([facility]) Vital Signs (Past 12 Hours) Vital Signs Temp Pulse Pulse Pulse Resp BP BP 04/17/22 03:32 36.9 C 75 16 136/68 04/16/22 23:39 88 04/16/22 23:39 36.8 C 87 18 169/79 H 04/16/22 22:28 99 H 19 171/105 H 04/16/22 21:00 96 H 19 169/72 H 04/16/22 19:39 04/16/22 19:37 04/16/22 19:37 88 20 191/86 H 04/16/22 19:37 36.9 C 88 20 191/86 H Pulse Ox O2 Del Method 04/17/22 03:32 91 Room Air 04/16/22 23:39 04/16/22 23:39 95 Room Air 04/16/22 22:28 95 Room Air 04/16/22 21:00 94 Room Air 04/16/22 19:39 96 Room Air 04/16/22 19:37 96 Room Air 04/16/22 19:37 96 Room Air 04/16/22 19:37 96 Room Air PG Care Time/CCT Total # of Minutes Spent Total Time Spent with Patient: Total time spent is greater than 50% in coordination of care (as documented) at patient's floor/unit and/or counseling patient: Coding Level of Care Code 55232 Subseq Hosp Care Lvl 3 Diagnoses Abdominal pain R10.9
[2022-04-17 05:58] LABS: Basophils # (auto) 0.05 K/uL (0-0.2); Basophils % (auto) 0.3 %; Eosinophils # (auto) 0.03 K/uL (0-0.50); Eosinophils % (auto) 0.2 %; Hematocrit (blood only) 42.6 % (34.1-44.9); Hemoglobin 14.5 g/dl (12.0-16.0); Immature Granulocytes # (auto) 0.09 K/uL (0.00-0.02); Immature Granulocytes % (auto) 0.5 %; Lymphocytes # (auto) 1.15 K/uL (1.2-3.4); Lymphocytes % (auto) 6.4 %; Mean Corpuscular Hemoglobin 29.3 pg (25.0-34.0); Mean Corpuscular Volume 86.1 fL (80.0-100.0); Mean Platelet Volume 9.6 fL (9.4-12.3); Monocytes # (auto) 0.48 K/uL (0.24-0.82); Monocytes % (auto) 2.7 %; Neutrophils # (auto) 16.28 K/uL (1.4-6.5); Neutrophils % (auto) 89.9 %; Platelet Count 334 K/uL (130-400); RDW Coefficient of Variation 13.6 % (11.5-14.5); RDW Standard Deviation 42.2 fL (36.4-46.3); Red Blood Count 4.95 M/uL (3.93-5.22); White Blood Count 18.08 K/ul (4.8-10.8)
--- NOTE | 2022-04-17 06:19 | CT Scan Report ---
CT SCAN OF THE ABDOMEN AND PELVIS WITH IV CONTRAST CLINICAL HISTORY: Upper abdominal pain. COMPARISON STUDY: No priors. TECHNIQUE: Following the IV administration of 87 cc of Optiray 350, CT scan of the abdomen and pelvi s is performed from the lung bases to the proximal femora. Images are reviewed in the axial, sagittal , and coronal planes. IV contrast was administered without complication. A dose lowering technique wa s utilized adhering to the principles of ALARA. CT DOSE: 427.07 mGy.cm FINDINGS: Lung bases: The heart is normal in size and without pericardial effusion. The coronary arteries and m itral annulus are densely calcified. There is a moderate hiatal hernia. The lung bases are clear noti ng mild bibasilar scarring/atelectasis. Liver: The contrast-enhanced liver is normal in size, contour, and attenuation. There is no intrahepa tic biliary ductal dilatation. The hepatic veins and portal veins are patent. Gallbladder: The gallbladder is distended and there are small calcified gallstones. There is no CT ev idence of acute cholecystitis. Spleen: Normal in size and attenuation. Pancreas: Unremarkable. Adrenal glands: Unremarkable. Kidneys: The contrast enhanced kidneys are normal in size and without hydronephrosis. The kidneys enh ance symmetrically. Abdominal vasculature: The abdominal aorta is normal in course and caliber noting advanced atheroscle rotic calcification. Bowel: There is no bowel obstruction. Mild fecal retention is seen in the colon. A duodenal diverticu lum is incidentally noted. The appendix is well-visualized and normal. Peritoneum: There is no intraperitoneal free air or abdominal ascites. Lymphadenopathy: None. Pelvic viscera: The bladder is normal as visualized. The endometrium appears thickened for age, measu ring up to 6 mm in thickness. There is a 13.7 cm predominantly cystic lesion in the right adnexa, lik fritz related to the right ovary. There are small calcifications seen posteriorly. No enhancing nodular ity or soft tissue component is identified. Skeletal structures: The skeletal structures are osteopenic. There is mild to moderate lumbosacral sp ondylosis. No lytic or blastic lesions are seen. IMPRESSION: 1. Cholelithiasis within a distended gallbladder. There is no clear CT evidence of acute cholecystiti s. Correlate with clinical and laboratory findings. If there is clinical concern for acute cholecysti tis a right upper quadrant ultrasound should be considered. 2. There is a 13.7 cm largely simple appearing cystic lesion in the right adnexa, likely related to t he right ovary. No ovarian neoplasm is the diagnosis of exclusion. Additionally, the endometrium appe ars abnormally thickened for age. Gynecology evaluation is advised. 3. Moderate hiatal hernia. 4. Additional findings as above. ACT 112: Negative or not required by law. Electronically signed by: Brennen Venegas M.D. 04/17/2022 6:18 AM
[2022-04-17 06:24] LABS: Albumin Globulin Ratio 1.1 (0.9-2); Bilirubin,Total 4.9 mg/dl (0.2-1.0); Calcium 8.9 mg/dl (8.5-10.1); Creatinine Clr Calc Pharmacy 60.4 ml/min; Est GFR (African American) 93.7 ml/min; Est GFR (Non-African American) 80.8 ml/min; Globulin 3.6 gm/dl (2.5-4.0); Magnesium 2.5 mg/dl (1.7-2.4); Total Protein 7.6 gm/dl (6.0-8.3)
--- NOTE | 2022-04-17 07:01 | Communication Note ---
Date of Service: April 17, 2022 Patient hesitant to go for MRCP. Request for liver ultrasound Re: Abnormal LFTs Surgery provider recommended consulting GI after being given update.
[2022-04-17] MEDS: amLODIPine BESYLATE 5 MG TAB PO SCH (07:55)
[2022-04-17] MEDS: SODIUM CHLORIDE 0.9% 1000ML 1,000 ML IV SCH ×2 (07:55→16:56)
[2022-04-17] MEDS: METOPROLOL TARTRATE 50 MG TAB PO SCH ×2 (07:57→21:30)
[2022-04-17] MEDS: PANTOprazole 40 MG TAB PO SCH ×2 (07:57→21:30)
[2022-04-17] MEDS: lisinopril 10 MG TAB PO SCH (07:58)
[2022-04-17] MEDS: ERTAPENEM SODIUM 1,000 MG in SYRINGE 0 ML IV SCH (07:59)
[2022-04-17] MEDS: ENOXAPARIN INJ 30 MG/0.3 ML SYR SQ SCH (07:59)
[2022-04-17] MEDS ORDERED: ONDANSETRON INJ 2 MG/ML 2 ML VIAL IV PRN (08:52)
[2022-04-17] MEDS ORDERED: NON-FORMULARY MEDICATION (Omeprazole 20 mg capsule,delayed release(DR/EC)) PO SCH (09:00)
[2022-04-17] MEDS ORDERED: NON-FORMULARY MEDICATION (Riboflavin (Vitamin B2) 400 mg tablet) PO SCH (09:00)
--- NOTE | 2022-04-17 10:43 | Ultrasound Report ---
ULTRASOUND RIGHT UPPER QUADRANT ABDOMEN CLINICAL HISTORY: Elevated transaminases. COMPARISON STUDY: Abdominal CT dated 04/16/2022. TECHNIQUE: Real-time, grayscale, and color flow sonography of the right upper quadrant of the abdomen was performed. Images are reviewed in the transverse and longitudinal planes. FINDINGS: Liver: The liver is normal in size and echotexture. There is no intrahepatic biliary ductal dilatatio n. The main portal vein is patent. Gallbladder: The gallbladder is distended, and contains both gallstones and biliary sludge. There is no gallbladder wall thickening or pericholecystic fluid. A sonographic Walter's sign is reportedly ab sent. The common bile duct measures up to 0.4 cm in diameter. Pancreas: Visualized portions of the pancreatic head and body are normal in appearance. Right kidney: Survey images of the right kidney demonstrate normal size and echotexture. There is no hydronephrosis. Ascites: None. IMPRESSION: 1. Cholelithiasis and biliary sludge with no sonographic evidence of acute cholecystitis. If there is strong clinical concern for acute cholecystitis a nuclear hepatobiliary scan could be considered. 2. There is no intra or extrahepatic biliary ductal dilatation. ACT 112: Negative or not required by law. Electronically signed by: Bernnen Venegas M.D. 04/17/2022 10:41 AM
--- NOTE | 2022-04-17 10:44 | Ultrasound Report ---
ULTRASOUND OF THE PELVIS CLINICAL HISTORY: Cystic pelvic lesion. COMPARISON STUDY: Pelvic CT dated 04/16/2022. TECHNIQUE: Real-time, grayscale, and color flow sonography of the pelvis is performed transabdominall y. Images are reviewed in the transverse and longitudinal planes. FINDINGS: Uterus: The uterus is normal in size and heterogeneous in echotexture, measuring 7.4 x 2.4 x 5.1 cm. Endometrium: The endometrium is thickened for age, measuring up to 1.2 cm. Ovaries: There is a 14.2 x 9.9 x 9.7 cm, cystic lesion in the right hemipelvis. This is likely relate d to the right ovary. There are calcifications within the wall of this lesion with minimal nodularity . The left ovary was not visualized. Pelvis: There is no free fluid in the cul-de-sac. IMPRESSION: 1. Again seen is a 14.2 cm predominantly cystic lesion in the right adnexa, likely related to the rig ht ovary. An ovarian neoplasm is the diagnosis of exclusion. Gynecology follow up is recommended. 2. The endometrium is abnormally thickened for age measuring up to 1.2 cm. Gynecology follow-up is re commended. ACT 112: Negative or not required by law. Electronically signed by: Brennen Venegas M.D. 04/17/2022 10:43 AM
[2022-04-17] MEDS ORDERED: Nursing to Pharmacy Communication SCH (10:45)
--- NOTE | 2022-04-17 14:12 | Hospitalist Progress Note ---
Date of Service April 17, 2022 Assessment & Plan (1) Abdominal pain: (2) Cholelithiasis: Plan: Present on admission with RUQ abdominal pain associated with nausea with emesis this morning CT abd/pelvis showed cholelithiasis within a distended gallbladder. RUQ ultrasound showed cholelithiasis and biliary sludge with no sonographic evidence of acute cholecystitis. There is no intra or extrahepatic biliary ductal dilatation. Pt refused to go for the MRCP Surgery on board Continue abx with IV ertapenem Continue pain control and antiemetic Surgery waiting for GI evaluation before proceed with any intervention if needed Might consider to get HIDA scan Will keep NPO with sips water SIRS Met criteria on admission with tachycardia and leukocytosis received Cefoxitin in the ER Currently on IV ertapenem Blood cx pending will check procalcitonin Transaminitis Liver enzymes elevated with AST 288, ALT 286 and ALK 325 AST 203, ALT 255 and ALK 358 today RUQ ultrasound showed cholelithiasis and biliary sludge with no sonographic evid ence of acute cholecystitis. There is no intra or extrahepatic biliary ductal dilatation. Pt refused to go for MRCP Gastro on board Continue monitor LFT Hyponatremia Possible related to poor oral intake/vomiting Na 125 and urine osmolarity low on admission Na 128 today Continue gentle IVF Continue monitor BMP Right Adnexa mass Vaginal U/S showed 13.7 cm largely simple appearing cystic lesion in the right adnexa, likely related to the right ovary. Will need outpatient Gynecology evaluation Elevate glucose Hgba1c pending Continue monitor glucose DVT Lovenox subq CODE Status Full code Patient daughter requesting updates from providers. Ms. Reina Resendiz, contact #[phone]. Admission and Anticipated Discharge Date Admission Date: April 16, 2022 Subjective Pt was seen and examined for follw up of abdominal pain. Lying in bed with no acute distress Pt said that abdominal pain improves a little. she said that she vomited early She does not want to go for the MRCP because she does not like the idea to get inside the MRI marchine Denies any chest pain, palpitation, dizziness and SOB Review of Systems Review of Systems: All systems reviewed & are unremarkable except as noted in Subjective Physical Exam Physical Exam: General- No acute distress Head- atraumatic Eyes- PERRL, EOMI, ENT- oropharynx clear Neck- supple, no JVD Lungs- clear to auscultation Heart- regular rhythm; no murmur Abdomen- normal bowel sounds, +tenderness palpation Extremities- no calf tenderness Neuro- alert, oriented x 3; PERRL, EOMI; no facial palsy; no dysarthria Skin- warm & dry Results & Data Results & Data ([facility]) Vital Signs (Past 12 Hours) Vital Signs Temp Pulse Pulse Resp BP Pulse Ox O2 Del Method 04/17/22 10:45 36.6 C 67 18 131/73 92 Room Air 04/17/22 07:32 79 04/17/22 07:25 36.9 C 78 18 124/67 92 Room Air 04/17/22 03:32 36.9 C 75 16 136/68 91 Room Air
[2022-04-17] MEDS: ACETAMINOPHEN 500 MG TAB PO PRN (14:25)
[2022-04-18] MEDS: LEVOTHYROXINE SODIUM 25 MCG TABLET PO SCH (05:00)
[2022-04-18] MEDS: SODIUM CHLORIDE 0.9% 1000ML 1,000 ML IV SCH ×2 (05:00→20:25)
--- NOTE | 2022-04-18 05:10 | Electrocardiogram Report ---
Test Reason : Blood Pressure : / mmHG Vent. Rate : 088 BPM Atrial Rate : 088 BPM P-R Int : 154 ms QRS Dur : 090 ms QT Int : 352 ms P-R-T Axes : 050 -11 006 degrees QTc Int : 425 ms Poor data quality, interpretation may be adversely affected Normal sinus rhythm Possible Left atrial enlargement Left ventricular hypertrophy Cannot rule out Septal infarct , age undetermined Abnormal ECG When compared with ECG of 31-OCT-2018 18:23, Sinus rhythm is no longer with 2nd degree A-V block (Mobitz I) Minimal criteria for Septal infarct are now Present Confirmed by Shekhar Alonso ([id number]) on 04/18/2022 5:10:05 AM Referred By: REFERRED SELF Confirmed By:Shekhar Alonso
[2022-04-18 07:22] LABS: Estimated Average Glucose 111 mg/dl; Hemoglobin A1C 5.5 % (4.5-5.6)
[2022-04-18] MEDS: lisinopril 10 MG TAB PO SCH (07:53)
[2022-04-18] MEDS: amLODIPine BESYLATE 5 MG TAB PO SCH (07:53)
[2022-04-18] MEDS: METOPROLOL TARTRATE 50 MG TAB PO SCH ×2 (07:53→20:25)
[2022-04-18] MEDS: PANTOprazole 40 MG TAB PO SCH ×2 (07:53→20:26)
[2022-04-18] MEDS: ENOXAPARIN INJ 30 MG/0.3 ML SYR SQ SCH (07:55)
[2022-04-18 07:57] LABS: Hematocrit (blood only) 37.6 % (34.1-44.9); Hemoglobin 12.4 g/dl (12.0-16.0); Mean Corpuscular Hemoglobin 28.8 pg (25.0-34.0); Mean Corpuscular Volume 87.2 fL (80.0-100.0); Mean Platelet Volume 9.6 fL (9.4-12.3); Platelet Count 247 K/uL (130-400); RDW Coefficient of Variation 13.5 % (11.5-14.5); RDW Standard Deviation 43.5 fL (36.4-46.3); Red Blood Count 4.31 M/uL (3.93-5.22); White Blood Count 6.88 K/ul (4.8-10.8)
[2022-04-18 08:23] LABS: Albumin Globulin Ratio 1.2 (0.9-2); Albumin Level 3.4 gm/dl (3.4-5.0); BUN Creatinine Ratio 15.2 (10-20); Calcium 8.4 mg/dl (8.5-10.1); Creatinine Clr Calc Pharmacy 78.8 ml/min; Est GFR (African American) 102.2 ml/min; Est GFR (Non-African American) 88.2 ml/min; Globulin 2.9 gm/dl (2.5-4.0); Potassium 3.6 mmol/L (3.5-5.1); Total Protein 6.3 gm/dl (6.0-8.3)
--- NOTE | 2022-04-18 08:27 | Surgery Progress Note ---
Date of Service April 18, 2022 Assessment & Plan (1) Cholelithiasis: Plan: Clinically doing better. Awaiting input from gastroenterology. This morning's labs are still pending. She will likely need an ERCP and I would like to combine cholecystectomy at the same time so at her age we would only have 1 anesthesia. I will contact her daughter with the plan once gastroenterology sees her. She is n.p.o. so we could potentially do it later today. (2) Abnormal LFTs: Admission and Anticipated Discharge Date Admission Date: April 16, 2022 Subjective Patient seen. Feeling much better than yesterday. The pain and nausea have improved. Physical Exam Constitutional: WD/WN, vitals as above no acute distress and not ill appearing Eyes: PERRL, conjunctivae normal, anicteric sclerae EOM intact bilaterally ENMT: external ear and nose normal, oropharynx normal Ears: no hearing impairment Neck: trachea midline, no thyromegaly Respiratory: normal respiratory effort; no respiratory distress and does not use accessory muscles Cardiovascular: Rate/Rhythm: regular rate and regular rhythm Gastrointestinal (Abdomen): normal bowel sounds, soft, nontender, no hepatosplenomegaly Skin: no rashes, warm and dry Psychiatric: Orientation: alert, oriented x 3 and cooperative Results & Data ([facility]) Vital Signs (Past 12 Hours) Vital Signs Temp Pulse Pulse Resp BP Pulse Ox O2 Del Method 04/18/22 07:36 36.8 C 80 16 153/65 H 93 Room Air 04/18/22 07:35 73 04/18/22 04:00 36.7 C 83 16 161/77 H 94 Room Air 04/17/22 22:48 60 04/17/22 22:17 36.5 C 75 18 154/66 H 93 Room Air PG Care Time/CCT Total # of Minutes Spent Total Time Spent with Patient: Total time spent is greater than 50% in coordination of care (as documented) at patient's floor/unit and/or counseling patient: Coding Level of Care Code 52270 Subseq Hosp Care Lvl 3 Diagnoses Cholelithiasis K80.20 Abnormal LFTs R79.89
[2022-04-18] MEDS: ERTAPENEM SODIUM 1,000 MG in SYRINGE 0 ML IV SCH (08:30)
[2022-04-18] MEDS ORDERED: LORazepam 0.5 MG TAB PO ONE (09:15)
--- NOTE | 2022-04-18 09:41 | Gastrointestinal Consultation ---
Date of Consultation April 18, 2022 Assessment & Plan (1) Abnormal LFTs: (2) Cholelithiasis: (3) Abdominal pain, acute, right upper quadrant: Pt is a 89 yo female who initially presented w epigastric abd pain, diarrhea noted to have elevated WBC, LFTs and abd imaging studies findings of cholelithiasis wo obvious cholecystitis and normal CBD. She also has a large R ovarian cystic lesion ? neoplasm. Abd exam benign today, and her WBC has normalized, LFTs trending down possibly had passed gallstone - Obtain MRCP today - Continue IV antibx - Trend LFTs - Surgery following - Recommend [employer] consult for R ovarian cystic lesion and thickened endometrium - Attempted to contact daughter Betito) [phone] to give updates, no answer, left message for her to contact me back Supervising Physician Co-Signing Physician Notes Patient was seen and examined on 04/18 with RANDALL Triana whose note reflects our findings and plan. MRCP negative for choledocholithiasis. LFTs improving. Agree with surgery eval and mgt of primary issues. History of Present Illness Reason for Consultation: Elevated LFTs Requesting Physician: Dr. Cece Reyes Attending Physician: Dr. Nadia Geiger History of Present Illness Pt is a 89 yo female who presented with c/o achy epigastric abd pain associated with diarrhea x 1 episode wo gross GI bleeding. She denies associated fever, chills, CP, SOB, nausea, vomiting. However noticed that her urine is dark in color. On eval, noted to have elevated WBC, and elevated LFTs: Tbili 4.9, AST/ALT 200s, Alk phos 358. Abd imaing studies w CT and liver u/s showed gallstones w/o obvious cholecystitis, normal CBD. She does have a 14cm R ovarian cystic lesion w thickened endometrium. She was started on Ertapenem IV, WBC normalized now and LFTs are trending down today: Tbili 2, AST 76, ALK 141, Alk phos 257. Denies hx of liver dz in the family. Takes max 4 tabs of Tylenol in a day. Denies new meds or herbal supplements Allergies Allergy/AdvReac Type Severity Reaction Status Date / Time doxycycline Allergy Intermediate RED ALL Verified 04/16/22 20:11 OVER Sulfa (Sulfonamide Allergy Unknown CAN'T Verified 04/16/22 20:11 Antibiotics) REMEMBER Penicillins AdvReac Severe nausea/vomi Verified 04/16/22 20:11 ting Home Medications Medication Instructions Recorded Confirmed Type Magnesium-Zinc 1 tab PO DAILY 10/31/18 04/16/22 History ascorbic acid (vitamin C) 500 mg 500 mg PO DAILY 10/31/18 04/16/22 History tablet (Vitamin C) levothyroxine 25 mcg tablet 25 mcg PO DAILYBB 10/31/18 04/16/22 History lisinopril 30 mg tablet 30 mg PO DAILY 10/31/18 04/16/22 History loratadine 10 mg tablet 10 mg PO DAILY PRN Allergy Symptoms 10/31/18 04/16/22 History metoprolol tartrate 50 mg tablet 50 mg PO BID 10/31/18 04/16/22 History omeprazole 20 mg capsule,delayed 20 mg PO BID 10/31/18 04/16/22 History release polyethylene glycol 3350 17 17 g PO DAILY PRN Constipation 10/31/18 04/16/22 History gram/dose oral powder riboflavin (vitamin B2) 400 mg 400 mg PO DAILY 10/31/18 04/16/22 History tablet amlodipine 2.5 mg tablet 2.5 mg PO DAILY 04/16/22 04/16/22 History nystatin 100,000 unit/gram topical 1 applic topical TID PRN Skin 04/16/22 04/16/22 History powder Irritation Patient History Medical History (Updated 04/18/22 @ 15:05 by Abebe Jarrett MD) Hypertension Migraines Family History Other Family history non-contributory Social History Smoking Status: Never smoker Hx Alcohol Use: No Hx Substance Use: No Preferred Language: Serbian Communication Ability: Effective Multineedle Shirrer Required: No Beliefs That Will Affect Care: None Current Living Situation: Alone Other Information That Helps Us Care for You: No Feels Safe at Home: Yes Safety Concerns: Feels Safe At This Time Assistive Devices: Walker Review of Systems Review of Systems: All systems reviewed & are unremarkable except as noted in HPI & below Physical Exam Constitutional: WD/WN, vitals as above well groomed, cooperative and comfortable Eyes: PERRL, conjunctivae normal, anicteric sclerae ENMT: external ear and nose normal, oropharynx normal Respiratory: normal respiratory effort, lungs clear to auscultation Cardiovascular: RRR, no murmur, no edema Gastrointestinal (Abdomen): normal bowel sounds, soft, nontender, no hepatosplenomegaly Skin: no rashes, warm and dry no jaundice Psychiatric: A+Ox3, euthymic affect Lymphatic: no lymphedema Results & Data ([facility]) Vital Signs (Past 12 Hours) Vital Signs Temp Pulse Pulse Resp BP Pulse Ox O2 Del Method 04/18/22 07:36 36.8 C 80 16 153/65 H 93 Room Air 04/18/22 07:35 73 04/18/22 04:00 36.7 C 83 16 161/77 H 94 Room Air 04/17/22 22:48 60 04/17/22 22:17 36.5 C 75 18 154/66 H 93 Room Air
--- NOTE | 2022-04-18 14:36 | Magnetic Resonance Report ---
MR MRCP HISTORY: 89 years-old Female r/o CBD obstruction acute generalized abdominal pain with nausea and fe pa COMPARISON: CT abdomen and pelvis 04/16/2022 TECHNIQUE: MRCP without the use of IV contrast was obtained according to institutional protocol FINDINGS: Partially imaged cystic lesion of the pelvis redemonstrated measuring up to approximately 14 cm compr essing the urinary bladder. Multilevel degenerative changes of the spine are redemonstrated with elizabeth lar disc bulging most pronounced at L3-L4 and L4-L5. The heart is upper limits of normal in size. Mod erate sized hiatal hernia. The lung bases. Visualized portions of the spleen, pancreas and adrenal gl ands are unremarkable. The liver is within normal limits. No hydronephrosis. Mild perinephric strandi ng bilaterally. No abdominal aortic aneurysm or lymphadenopathy. No bowel obstruction, bowel wall thi ckening or abdominal free fluid identified. Cholelithiasis with gallbladder distention. No gallbladder wall thickening or pericholecystic fluid i dentified. The common bile duct is normal measuring up to 5 mm transversely. No choledocholithiasis i dentified. No pancreatic ductal dilation or pancreatic divisum identified. IMPRESSION: 1. Cholelithiasis with gallbladder distention. No gallbladder wall thickening or pericholecystic flui d identified to suggest acute cholecystitis. 2. No choledocholithiasis or biliary ductal dilation. 3. Large pelvic cystic mass redemonstrated, suspicious for an ovarian epithelial neoplasm. 4. Moderate sized hiatal hernia. ACT 112: Negative or not required by law. The above report was generated using voice recognition software. It may contain grammatical, syntax o r spelling errors. Electronically signed by: Rickey Gallagher M.D. 04/18/2022 2:35 PM
--- NOTE | 2022-04-18 15:06 | OB/GYN Consultation ---
Date of Consultation April 18, 2022 Assessment & Plan (1) Ovarian mass, right: Plan Will check Ca 125 will likely need to be seen by [facility]iography teacher oncology in [place] if she is a surgical candidate History of Present Illness Reason for Consultation: pelvic mass of ovary Requesting Physician: Tejas Attending Physician: Cece Reyes MD History of Present Illness 89 F [id number] post-menopausal who preseents to [facility] with sepsis and cholelithiasis. She had CT and pelvic ultrasound which shows 14.2 x 9.9 x 9.7 cm right ovarinan cyst with some calcification and minimal nodularity. There is no free fluid in the pelvis. No history of historiography teacher problems or PMPB. She is NPO to possibly remove her gall bladder. Allergies Allergy/AdvReac Type Severity Reaction Status Date / Time doxycycline Allergy Intermediate RED ALL Verified 04/16/22 20:11 OVER Sulfa (Sulfonamide Allergy Unknown CAN'T Verified 04/16/22 20:11 Antibiotics) REMEMBER Penicillins AdvReac Severe nausea/vomi Verified 04/16/22 20:11 ting Home Medications Medication Instructions Recorded Confirmed Type Magnesium-Zinc 1 tab PO DAILY 10/31/18 04/16/22 History ascorbic acid (vitamin C) 500 mg 500 mg PO DAILY 10/31/18 04/16/22 History tablet (Vitamin C) levothyroxine 25 mcg tablet 25 mcg PO DAILYBB 10/31/18 04/16/22 History lisinopril 30 mg tablet 30 mg PO DAILY 10/31/18 04/16/22 History loratadine 10 mg tablet 10 mg PO DAILY PRN Allergy Symptoms 10/31/18 04/16/22 History metoprolol tartrate 50 mg tablet 50 mg PO BID 10/31/18 04/16/22 History omeprazole 20 mg capsule,delayed 20 mg PO BID 10/31/18 04/16/22 History release polyethylene glycol 3350 17 17 g PO DAILY PRN Constipation 10/31/18 04/16/22 History gram/dose oral powder riboflavin (vitamin B2) 400 mg 400 mg PO DAILY 10/31/18 04/16/22 History tablet amlodipine 2.5 mg tablet 2.5 mg PO DAILY 04/16/22 04/16/22 History nystatin 100,000 unit/gram topical 1 applic topical TID PRN Skin 04/16/22 04/16/22 History powder Irritation Patient History Medical History (Updated 04/18/22 @ 15:05 by Abebe Jarrett MD) Hypertension Migraines Family History Other Family history non-contributory Social History Smoking Status: Never smoker Hx Alcohol Use: No Hx Substance Use: No Preferred Language: [place] Communication Ability: Effective Informaticist Required: No Beliefs That Will Affect Care: None Current Living Situation: Alone Other Information That Helps Us Care for You: No Feels Safe at Home: Yes Safety Concerns: Feels Safe At This Time Assistive Devices: Walker Review of Systems Review of Systems: All systems reviewed & are unremarkable except as noted in HPI & below Physical Exam Constitutional: WD/WN, vitals as above Gastrointestinal (Abdomen): normal bowel sounds, soft, nontender, no hepatosplenomegaly Inspection/Auscultation: abdomen normal to inspection abdomen is soft and non-tender. NO palpable mass. Some very mild discomfort with deep palpation. No rebound or guarding. No prior incisions abdominally. Musculoskeletal: Extremities: extremities normal to inspection Neurologic: patellar DTR's 2+ bilat, sensation intact Psychiatric: A+Ox3, euthymic affect Results & Data ([facility]) Vital Signs (Past 12 Hours) Vital Signs Temp Pulse Pulse Resp BP BP Pulse Ox 04/18/22 14:44 36.4 C L 96 H 18 148/74 H 95 04/18/22 10:40 36.6 C 72 18 133/64 92 04/18/22 07:36 36.8 C 80 16 153/65 H 93 04/18/22 07:35 73 04/18/22 04:00 36.7 C 83 16 161/77 H 94 O2 Del Method 04/18/22 14:44 Room Air 04/18/22 10:40 Room Air 04/18/22 07:36 Room Air 04/18/22 07:35 04/18/22 04:00 Room Air Laboratory Results Laboratory Results - last 72 hr 04/16/22 04/16/22 04/16/22 19:45 19:45 19:45 WBC 15.21 H RBC 4.75 Hgb 13.9 Hct 41.1 MCV 86.5 MCH 29.3 MCHC 33.8 RDW Std Deviation 42.5 RDW Coeff of Naresh 13.4 Plt Count 327 MPV 10.2 Immature Gran % (Auto) 0.3 Neut % (Auto) 91.3 Lymph % (Auto) 6.0 [place] % (Auto) 2.0 Eos % (Auto) 0.1 Baso % (Auto) 0.3 Neut # (Auto) 13.89 H Lymph # (Auto) 0.91 L [place] # (Auto) 0.30 Eos # (Auto) 0.01 Baso # (Auto) 0.05 Immature Gran # (Auto) 0.05 H PT Cancelled INR Cancelled APTT Cancelled PTT Ratio Cancelled Sodium TNP Potassium TNP Chloride 93 L Carbon Dioxide 22 Anion Gap TNP BUN 13 Creatinine 0.53 L Est Cr Clr Drug Dosing 107.1 Est GFR ( Amer) 97.6 Est GFR (Non-Af Amer) 84.2 BUN/Creatinine Ratio 24.5 H Glucose 140 H Estimat Average Glucose Hemoglobin A1c Osmolality Lactate Calcium 8.9 Magnesium Total Bilirubin 2.8 H AST TNP ALT 286 H Alkaline Phosphatase 325 H Troponin I High Sens 10.1 Total Protein 7.5 Albumin 4.1 Globulin 3.4 Albumin/Globulin Ratio 1.2 Lipase 24 Procalcitonin TSH Urine Color Urine Appearance Urine pH Ur Specific [place] Urine Protein Urine Glucose (UA) Urine Ketones Urine Blood Urine Nitrite Urine Bilirubin Urine Urobilinogen Ur Leukocyte Esterase Urine Osmolality Ur Random Sodium SARS-CoV-2, RNA, NAAT 04/16/22 04/16/22 04/16/22 19:53 20:22 21:32 WBC RBC Hgb Hct MCV MCH MCHC RDW Std Deviation RDW Coeff of Naresh Plt Count MPV Immature Gran % (Auto) Neut % (Auto) Lymph % (Auto) [place] % (Auto) Eos % (Auto) Baso % (Auto) Neut # (Auto) Lymph # (Auto) [place] # (Auto) Eos # (Auto) Baso # (Auto) Immature Gran # (Auto) PT 11.4 INR 1.1 APTT 34.3 H PTT Ratio 1.2 Sodium Potassium Chloride Carbon Dioxide Anion Gap BUN Creatinine Est Cr Clr Drug Dosing Est GFR ( Amer) Est GFR (Non-Af Amer) BUN/Creatinine Ratio Glucose Estimat Average Glucose Hemoglobin A1c Osmolality Lactate Calcium Magnesium Total Bilirubin AST ALT Alkaline Phosphatase Troponin I High Sens Total Protein Albumin Globulin Albumin/Globulin Ratio Lipase Procalcitonin TSH Urine Color Urine Appearance Urine pH Ur Specific [place] Urine Protein Urine Glucose (UA) Urine Ketones Urine Blood Urine Nitrite Urine Bilirubin Urine Urobilinogen Ur Leukocyte Esterase Urine Osmolality 230 L Ur Random Sodium SARS-CoV-2, RNA, NAAT NEGATIVE 04/16/22 04/16/22 04/16/22 21:32 21:32 22:22 WBC RBC Hgb Hct MCV MCH MCHC RDW Std Deviation RDW Coeff of Naresh Plt Count MPV Immature Gran % (Auto) Neut % (Auto) Lymph % (Auto) [place] % (Auto) Eos % (Auto) Baso % (Auto) Neut # (Auto) Lymph # (Auto) [place] # (Auto) Eos # (Auto) Baso # (Auto) Immature Gran # (Auto) PT INR APTT PTT Ratio Sodium 125 L Potassium 4.0 Chloride Carbon Dioxide Anion Gap BUN Creatinine Est Cr Clr Drug Dosing Est GFR ( Amer) Est GFR (Non-Af Amer) BUN/Creatinine Ratio Glucose Estimat Average Glucose Hemoglobin A1c Osmolality Lactate Calcium Magnesium 1.6 L Total Bilirubin AST 288 H ALT Alkaline Phosphatase Troponin I High Sens Total Protein Albumin Globulin Albumin/Globulin Ratio Lipase Procalcitonin TSH Urine Color Yellow Urine Appearance Clear Urine pH 7.0 Ur Specific [place] 1.031 H Urine Protein Negative Urine Glucose (UA) Negative Urine Ketones Negative Urine Blood Negative Urine Nitrite Negative Urine Bilirubin Negative Urine Urobilinogen Negative Ur Leukocyte Esterase Negative Urine Osmolality Ur Random Sodium SARS-CoV-2, RNA, NAAT 04/16/22 04/16/22 04/16/22 22:22 23:48 23:48 WBC RBC Hgb Hct MCV MCH MCHC RDW Std Deviation RDW Coeff of Naresh Plt Count MPV Immature Gran % (Auto) Neut % (Auto) Lymph % (Auto) [place] % (Auto) Eos % (Auto) Baso % (Auto) Neut # (Auto) Lymph # (Auto) [place] # (Auto) Eos # (Auto) Baso # (Auto) Immature Gran # (Auto) PT INR APTT PTT Ratio Sodium Potassium Chloride Carbon Dioxide Anion Gap BUN Creatinine Est Cr Clr Drug Dosing Est GFR ( Amer) Est GFR (Non-Af Amer) BUN/Creatinine Ratio Glucose Estimat Average Glucose Hemoglobin A1c Osmolality 268 L Lactate 1.3 Calcium Magnesium Total Bilirubin AST ALT Alkaline Phosphatase Troponin I High Sens Total Protein Albumin Globulin Albumin/Globulin Ratio Lipase Procalcitonin TSH Urine Color Urine Appearance Urine pH Ur Specific [place] Urine Protein Urine Glucose (UA) Urine Ketones Urine Blood Urine Nitrite Urine Bilirubin Urine Urobilinogen Ur Leukocyte Esterase Urine Osmolality Ur Random Sodium 48 SARS-CoV-2, RNA, NAAT 04/16/22 04/17/22 04/17/22 23:48 05:40 05:40 WBC 18.08 H RBC 4.95 Hgb 14.5 Hct 42.6 MCV 86.1 MCH 29.3 MCHC 34.0 RDW Std Deviation 42.2 RDW Coeff of Naresh 13.6 Plt Count 334 MPV 9.6 Immature Gran % (Auto) 0.5 Neut % (Auto) 89.9 Lymph % (Auto) 6.4 [place] % (Auto) 2.7 Eos % (Auto) 0.2 Baso % (Auto) 0.3 Neut # (Auto) 16.28 H Lymph # (Auto) 1.15 L [place] # (Auto) 0.48 Eos # (Auto) 0.03 Baso # (Auto) 0.05 Immature Gran # (Auto) 0.09 H PT INR APTT PTT Ratio Sodium 128 L Potassium 4.0 Chloride 94 L Carbon Dioxide 25 Anion Gap 9 BUN 9 Creatinine 0.60 Est Cr Clr Drug Dosing 60.4 Est GFR ( Amer) 93.7 Est GFR (Non-Af Amer) 80.8 BUN/Creatinine Ratio 15.0 Glucose 130 H Estimat Average Glucose Hemoglobin A1c Osmolality Lactate Calcium 8.9 Magnesium 2.5 H Total Bilirubin 4.9 H D AST 203 H ALT 255 H Alkaline Phosphatase 358 H Troponin I High Sens Total Protein 7.6 Albumin 4.0 Globulin 3.6 Albumin/Globulin Ratio 1.1 Lipase Procalcitonin TSH 1.709 Urine Color Urine Appearance Urine pH Ur Specific [place] Urine Protein Urine Glucose (UA) Urine Ketones Urine Blood Urine Nitrite Urine Bilirubin Urine Urobilinogen Ur Leukocyte Esterase Urine Osmolality Ur Random Sodium SARS-CoV-2, RNA, NAAT 04/17/22 04/18/22 04/18/22 05:40 07:26 07:26 WBC 6.88 RBC 4.31 Hgb 12.4 Hct 37.6 MCV 87.2 MCH 28.8 MCHC 33.0 RDW Std Deviation 43.5 RDW Coeff of Naresh 13.5 Plt Count 247 MPV 9.6 Immature Gran % (Auto) Neut % (Auto) Lymph % (Auto) [place] % (Auto) Eos % (Auto) Baso % (Auto) Neut # (Auto) Lymph # (Auto) [place] # (Auto) Eos # (Auto) Baso # (Auto) Immature Gran # (Auto) PT INR APTT PTT Ratio Sodium 133 L Potassium 3.6 Chloride 101 Carbon Dioxide 25 Anion Gap 7 BUN 7 Creatinine 0.46 L Est Cr Clr Drug Dosing 78.8 Est GFR ( Amer) 102.2 Est GFR (Non-Af Amer) 88.2 BUN/Creatinine Ratio 15.2 Glucose 86 Estimat Average Glucose 111 Hemoglobin A1c 5.5 Osmolality Lactate Calcium 8.4 L Magnesium Total Bilirubin 2.0 H D AST 76 H ALT 141 H Alkaline Phosphatase 257 H Troponin I High Sens Total Protein 6.3 Albumin 3.4 Globulin 2.9 Albumin/Globulin Ratio 1.2 Lipase Procalcitonin TSH Urine Color Urine Appearance Urine pH Ur Specific [place] Urine Protein Urine Glucose (UA) Urine Ketones Urine Blood Urine Nitrite Urine Bilirubin Urine Urobilinogen Ur Leukocyte Esterase Urine Osmolality Ur Random Sodium SARS-CoV-2, RNA, NAAT 04/18/22 07:26 WBC RBC Hgb Hct MCV MCH MCHC RDW Std Deviation RDW Coeff of Naresh Plt Count MPV Immature Gran % (Auto) Neut % (Auto) Lymph % (Auto) [place] % (Auto) Eos % (Auto) Baso % (Auto) Neut # (Auto) Lymph # (Auto) [place] # (Auto) Eos # (Auto) Baso # (Auto) Immature Gran # (Auto) PT INR APTT PTT Ratio Sodium Potassium Chloride Carbon Dioxide Anion Gap BUN Creatinine Est Cr Clr Drug Dosing Est GFR ( Amer) Est GFR (Non-Af Amer) BUN/Creatinine Ratio Glucose Estimat Average Glucose Hemoglobin A1c Osmolality Lactate Calcium Magnesium Total Bilirubin AST ALT Alkaline Phosphatase Troponin I High Sens Total Protein Albumin Globulin Albumin/Globulin Ratio Lipase Procalcitonin 0.54 H TSH Urine Color Urine Appearance Urine pH Ur Specific [place] Urine Protein Urine Glucose (UA) Urine Ketones Urine Blood Urine Nitrite Urine Bilirubin Urine Urobilinogen Ur Leukocyte Esterase Urine Osmolality Ur Random Sodium SARS-CoV-2, RNA, NAAT
--- NOTE | 2022-04-18 16:17 | Hospitalist Progress Note ---
Date of Service April 18, 2022 Assessment & Plan (1) Abdominal pain: (2) Cholelithiasis: Plan: Present on admission with RUQ abdominal pain associated with nausea with emesis this morning CT abd/pelvis showed cholelithiasis within a distended gallbladder. RUQ ultrasound showed cholelithiasis and biliary sludge with no sonographic evidence of acute cholecystitis. There is no intra or extrahepatic biliary ductal dilatation. MRCP showed cholelithiasis with gallbladder distention. No gallbladder wall thickening or pericholecystic fluid identified to suggest acute cholecystitis. Surgery on board Continue abx with IV ertapenem Continue pain control and antiemetic Surgery waiting for GI evaluation before proceed with any intervention if needed Will keep NPO with sips water Gastro on board Will discuss with gastro SIRS Met criteria on admission with tachycardia and leukocytosis Procalcitonin elevated WBC within normal limit today received Cefoxitin in the ER Currently on IV ertapenem Blood cx no growth Continue monitor Transaminitis Liver enzymes elevated with AST 288, ALT 286 and ALK 325 AST 76, ALT 141 and ALK 257 today RUQ ultrasound showed cholelithiasis and biliary sludge with no sonographic evidence of acute cholecystitis. There is no intra or extrahepatic biliary ductal dilatation. Gastro on board MRCP showed cholelithiasis with gallbladder distention. No gallbladder wall thickening or pericholecystic fluid identified to suggest acute cholecystitis. Continue monitor LFT Hyponatremia Possible related to poor oral intake/vomiting Na 125 and urine osmolarity low on admission Na 133 today Continue gentle IVF Continue monitor BMP Right Adnexa mass Vaginal U/S showed 13.7 cm largely simple appearing cystic lesion in the right adnexa, likely related to the right ovary. MRCP showed Large pelvic cystic mass redemonstrated, suspicious for an ovarian epithelial neoplasm. Gynecology consulted Will check Ca 125 will likely need to be seen by [facility] oncology in [place] if she is a surgical candidate Elevate glucose Hgba1c 5.5 Continue monitor glucose DVT Lovenox subq CODE Status Full code Patient daughter requesting updates from providers. Orion Reina Resendiz, contact #[phone]. Admission and Anticipated Discharge Date Admission Date: April 16, 2022 Subjective Pt was seen and examine for follow up of abdominal pain and liver enzymes Sitting in chair with no acute distress Pt said that abdominal pain improves She agreed to go for the MRCP today Denies any chest pain, palpitation, dizziness and SOB Review of Systems Review of Systems: All systems reviewed & are unremarkable except as noted in Subjective Physical Exam Physical Exam: General- No acute distress Head- atraumatic Eyes- PERRL, EOMI, ENT- oropharynx clear Neck- supple, no JVD Lungs- clear to auscultation Heart- regular rhythm; no murmur Abdomen- normal bowel sounds, +mild tenderness palpation Extremities- no calf tenderness Neuro- alert, oriented x 3; PERRL, EOMI; no facial palsy; no dysarthria Skin- warm & dry Results & Data Results & Data ([facility]) Vital Signs (Past 12 Hours) Vital Signs Temp Pulse Pulse Resp BP BP Pulse Ox 04/18/22 14:44 36.4 C L 96 H 18 148/74 H 95 04/18/22 10:40 36.6 C 72 18 133/64 92 04/18/22 07:36 36.8 C 80 16 153/65 H 93 04/18/22 07:35 73 O2 Del Method 04/18/22 14:44 Room Air 04/18/22 10:40 Room Air 04/18/22 07:36 Room Air 04/18/22 07:35
[2022-04-19] MEDS: LEVOTHYROXINE SODIUM 25 MCG TABLET PO SCH (06:07)
[2022-04-19 07:51] LABS: Albumin Globulin Ratio 1.1 (0.9-2); Albumin Level 3.2 gm/dl (3.4-5.0); BUN Creatinine Ratio 17.5 (10-20); Bilirubin,Total 1.1 mg/dl (0.2-1.0); Calcium 8.4 mg/dl (8.5-10.1); Creatinine Clr Calc Pharmacy 90.9 ml/min; Est GFR (Non-African American) 92.3 ml/min; Globulin 2.8 gm/dl (2.5-4.0); Potassium 3.5 mmol/L (3.5-5.1)
[2022-04-19] MEDS: SODIUM CHLORIDE 0.9% 1000ML 1,000 ML IV SCH ×2 (07:51→18:11)
[2022-04-19] MEDS: PANTOprazole 40 MG TAB PO SCH ×2 (07:51→21:22)
[2022-04-19] MEDS: METOPROLOL TARTRATE 50 MG TAB PO SCH ×2 (07:52→21:22)
[2022-04-19] MEDS: amLODIPine BESYLATE 5 MG TAB PO SCH (07:52)
[2022-04-19] MEDS: lisinopril 10 MG TAB PO SCH (07:52)
--- NOTE | 2022-04-19 08:15 | Surgery Progress Note ---
Date of Service April 19, 2022 Assessment & Plan (1) Cholelithiasis: Plan: Appears as though she likely passed a biliary stone. Her LFTs are trending towards normal and MRCP was negative. I discussed with her as well as her daughter regarding elective cholecystectomy versus observation versus discharge was set up for elective down the road. They would both prefer to have her gallbladder removed this admission and I think this is reasonable particularly since she was so symptomatic. We discussed the risks of the surgery which include bleeding infection injury to another organ blood clots DVT PE ND CVA etc. Following all this I answered their questions. We will proceed this afternoon with laparoscopic cholecystectomy. (2) Abdominal pain, acute, right upper quadrant: (3) Abnormal LFTs: Admission and Anticipated Discharge Date Admission Date: April 16, 2022 Subjective Patient seen. She is feeling much better and currently asymptomatic. MRCP revealed there is no bile duct stones. Her lab work is all improving. Physical Exam Constitutional: WD/WN, vitals as above no acute distress and not ill appearing Eyes: PERRL, conjunctivae normal, anicteric sclerae EOM intact bilaterally ENMT: external ear and nose normal, oropharynx normal Ears: no hearing impairment Neck: trachea midline, no thyromegaly Respiratory: normal respiratory effort; no respiratory distress and does not use accessory muscles Cardiovascular: Rate/Rhythm: regular rate and regular rhythm Gastrointestinal (Abdomen): normal bowel sounds, soft, nontender, no hepatosplenomegaly Skin: no rashes, warm and dry Psychiatric: Orientation: alert, oriented x 3 and cooperative Results & Data ([facility]) Vital Signs (Past 12 Hours) Vital Signs Temp Pulse Pulse Resp BP BP Pulse Ox 04/18/22 23:00 04/19/22 07:32 36.3 C L 83 18 160/65 H 91 04/19/22 03:29 37.0 C 80 16 157/66 H 92 04/19/22 00:00 81 04/18/22 23:25 36.7 C 81 18 158/69 H 92 Pulse Ox O2 Del Method O2 Del Method 04/18/22 23:00 92 Room Air 04/19/22 07:32 Room Air 04/19/22 03:29 Room Air 04/19/22 00:00 04/18/22 23:25 Room Air PG Care Time/CCT Total # of Minutes Spent Total Time Spent with Patient: Total time spent is greater than 50% in coordination of care (as documented) at patient's floor/unit and/or counseling patient: Coding Level of Care Code 79952 Subseq Hosp Care Lvl 3 Diagnoses Cholelithiasis K80.20 Abdominal pain, acute, right upper quadrant R10.11 Abnormal LFTs R79.89
--- NOTE | 2022-04-19 08:35 | Communication Note ---
Date of Service: April 19, 2022 GI note: MRCP wo choledocholithiasis or biliary ductal dilation. LFTs trending down. No indication for EUS/ERCP. Surgery to proceed with cholecystectomy. Can consider intraop cholangiogram. GI to sign off; pls recall prn
[2022-04-19] MEDS: ERTAPENEM SODIUM 1,000 MG in SYRINGE 0 ML IV SCH (08:53)
--- NOTE | 2022-04-19 10:12 | Anesthesiology Consultation ---
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 Surgery Operation Date: 04/19/22 09:10 Proposed Procedures p Laparoscopic Cholecystectomy - Jonathon Breen DO Height/Weight Height: 5 ft 3 in Weight: 72.4 kg Allergies Allergy/AdvReac Type Severity Reaction Status Date / Time doxycycline Allergy Intermediate RED ALL Verified 04/16/22 20:11 OVER Sulfa (Sulfonamide Allergy Unknown CAN'T Verified 04/16/22 20:11 Antibiotics) REMEMBER Penicillins AdvReac Severe nausea/vomi Verified 04/16/22 20:11 ting Medications Home Medications Medication Instructions Recorded Confirmed Last Taken Magnesium-Zinc 1 tab PO DAILY 10/31/18 04/16/22 04/16/22 ascorbic acid (vitamin C) 500 mg 500 mg PO DAILY 10/31/18 04/16/22 04/16/22 tablet (Vitamin C) levothyroxine 25 mcg tablet 25 mcg PO DAILYBB 10/31/18 04/16/22 04/16/22 lisinopril 30 mg tablet 30 mg PO DAILY 10/31/18 04/16/22 04/16/22 loratadine 10 mg tablet 10 mg PO DAILY PRN Allergy Symptoms 10/31/18 04/16/22 Unknown metoprolol tartrate 50 mg tablet 50 mg PO BID 10/31/18 04/16/22 04/16/22 08:00 omeprazole 20 mg capsule,delayed 20 mg PO BID 10/31/18 04/16/22 04/16/22 release polyethylene glycol 3350 17 17 g PO DAILY PRN Constipation 10/31/18 04/16/22 Unknown gram/dose oral powder riboflavin (vitamin B2) 400 mg 400 mg PO DAILY 10/31/18 04/16/22 04/16/22 tablet amlodipine 2.5 mg tablet 2.5 mg PO DAILY 04/16/22 04/16/22 04/16/22 nystatin 100,000 unit/gram topical 1 applic topical TID PRN Skin 04/16/22 04/16/22 Unknown powder Irritation Active Medications Generic Name Dose Route Start Last Admin Trade Name Freq PRN Reason Stop Dose Admin Acetaminophen 500 mg 04/16/22 23:39 04/17/22 14:25 Acetaminophen 500 Mg Tab PO 05/16/22 23:38 500 mg Q6H PRN Administration pain/fever Amlodipine Besylate 5 mg 04/17/22 09:00 04/19/22 07:52 Amlodipine Besylate 5 Mg Tab PO 05/17/22 08:59 5 mg DAILY MELISSA Administration Ertapenem 1,000 mg/ Syringe 10 mls @ 2 mls/min 04/17/22 09:00 04/19/22 08:53 IV 04/27/22 08:59 2 mls/min Q24H MELISSA Administration Sodium Chloride 1,000 mls @ 80 mls/hr 04/17/22 07:00 04/19/22 07:51 Nss 1000ml IV 05/17/22 06:59 80 mls/hr .[id number] MELISSA Administration Levothyroxine Sodium 25 mcg 04/17/22 06:30 04/19/22 06:07 Levothyroxine Sodium 25 Mcg Tablet PO 05/17/22 06:29 25 mcg DAILYBB MELISSA Administration Lisinopril 30 mg 04/17/22 09:00 04/19/22 07:52 Lisinopril 10 Mg Tab PO 05/17/22 08:59 30 mg DAILY MELISSA Administration Loratadine 10 mg 04/16/22 23:39 04/17/22 07:58 Loratadine 10 Mg Tab PO 05/16/22 23:38 10 mg DAILY PRN Administration Allergy Symptoms Metoprolol Tartrate 50 mg 04/17/22 09:00 04/19/22 07:52 Metoprolol Tartrate 50 Mg Tab PO 05/17/22 08:59 50 mg BID MELISSA Administration Ondansetron HCl 4 mg 04/17/22 08:52 04/17/22 09:15 Ondansetron Inj 2 Mg/Ml 2 Ml Vial IV 05/17/22 08:51 4 mg Q6H PRN Administration Nausea And Vomiting Pantoprazole Sodium 40 mg 04/17/22 09:00 04/19/22 07:51 Pantoprazole 40 Mg Tab PO 05/17/22 08:59 40 mg BID MELISSA Administration Past Medical History Medical History (Updated 04/19/22 @ 10:12 by Sonido Larson DO) Hypertension Migraines Past Family History Family History Other Family history non-contributory Social History Smoking Status: Never smoker Hx Alcohol Use: No Hx Substance Use: No Physical Exam Vital Signs Last Vital Signs Temp 97.3 F L 04/19/22 07:32 Pulse 80 04/19/22 09:39 Resp 18 04/19/22 07:32 BP 160/65 H 04/19/22 07:32 Pulse Ox 91 04/19/22 07:32 O2 Del Method 04/19/22 07:32 Testing Laboratory Results 04/18/22 07:26 04/19/22 06:55 PT 11.4 Seconds (9.0-12.0) 04/16/22 21:32 INR 1.1 (0.9-1.1) 04/16/22 21:32 APTT 34.3 Seconds (21.0-31.0) H 04/16/22 21:32 Hemoglobin A1c 5.5 % (4.5-5.6) 04/17/22 05:40 Urine Color Yellow 04/16/22 22:22 Urine Appearance Clear (Clear) 04/16/22 22:22 Urine pH 7.0 (4.5-7.5) 04/16/22 22:22 Ur Specific [place] 1.031 (1.000-1.030) H 04/16/22 22:22 Urine Protein Negative (Negative) 04/16/22 22:22 Urine Glucose (UA) Negative (Negative) 04/16/22 22:22 Urine Ketones Negative (Negative) 04/16/22 22:22 Urine Nitrite Negative (Negative) 04/16/22 22:22 Ur Leukocyte Esterase Negative (Negative) 04/16/22 22:22 04/16/22 23:48 Aerobic Blood Culture - Preliminary Blood No growth in Aerobic bottle after 48 hours. Anaerobic Blood Culture - Preliminary No growth in Anaerobic bottle after 48 hours. 04/16/22 23:48 Aerobic Blood Culture - Preliminary Blood No growth in Aerobic bottle after 48 hours. Anaerobic Blood Culture - Preliminary No growth in Anaerobic bottle after 48 hours. Electrocardiogram Date: 04/16/22 Poor data quality, interpretation may be adversely affected Normal sinus rhythm, rate 88 bpm Possible Left atrial enlargement Left ventricular hypertrophy Cannot rule out Septal infarct , age undetermined Abnormal ECG When compared with ECG of 31-OCT-2018 18:23, Sinus rhythm is no longer with 2nd degree A-V block (Mobitz I) Minimal criteria for Septal infarct are now Present Confirmed by Shekhar Alonso ([id number]) on 04/18/2022 5:10:05 AM Chest X-Ray Date: 04/16/22 Findings: + NAD
--- NOTE | 2022-04-19 11:23 | Hospitalist Progress Note ---
Date of Service April 19, 2022 Assessment & Plan (1) Abdominal pain: (2) Cholelithiasis: Plan: Present on admission with RUQ abdominal pain associated with nausea with emesis this morning CT abd/pelvis showed cholelithiasis within a distended gallbladder. RUQ ultrasound showed cholelithiasis and biliary sludge with no sonographic evidence of acute cholecystitis. There is no intra or extrahepatic biliary ductal dilatation. MRCP showed cholelithiasis with gallbladder distention. No gallbladder wall thickening or pericholecystic fluid identified to suggest acute cholecystitis. Surgery on board Continue abx with IV ertapenem Continue pain control and antiemetic Surgery on board and plan for laparoscopic cholecystectomy. Will keep NPO with sips water for the surgery later Gastro on board No plan for ERCP/EUS since MRCP wo choledocholithiasis or biliary ductal dilation LFTs trending down. SIRS Met criteria on admission with tachycardia and leukocytosis Procalcitonin elevated WBC within normal limit today received Cefoxitin in the ER Currently on IV ertapenem Blood cx no growth Continue monitor Transaminitis Liver enzymes elevated with AST 288, ALT 286 and ALK 325 LFT continue to trend down with AST 41, ALT 95 and ALK 215 today RUQ ultrasound showed cholelithiasis and biliary sludge with no sonographic evidence of acute cholecystitis. There is no intra or extrahepatic biliary ductal dilatation. Gastro on board MRCP showed cholelithiasis with gallbladder distention. No gallbladder wall thickening or pericholecystic fluid identified to suggest acute cholecystitis. Continue monitor LFT Hyponatremia Possible related to poor oral intake/vomiting Na 125 and urine osmolarity low on admission Na 133 today Continue gentle IVF Continue monitor BMP Right Adnexa mass Vaginal U/S showed 13.7 cm largely simple appearing cystic lesion in the right adnexa, likely related to the right ovary. MRCP showed Large pelvic cystic mass redemonstrated, suspicious for an ovarian epithelial neoplasm. Gynecology consulted Ca 125 pending Daughter Loretta was informed about the pelvis mass on the the phone and she undertands that pt need to be followed with Gynecology will likely need to be seen by [facility]ology in [place] if she is a surgical candidate Elevate glucose Hgba1c 5.5 Continue monitor glucose DVT Will hold Lovenox subq since she is schedule for surgery later CODE Status Full code Patient daughter requesting updates from providers. Ms. Reina Resendiz, contact #[phone]. Admission and Anticipated Discharge Date Admission Date: April 16, 2022 Subjective Pt was seen and examined for follow up of abdominal pain and liver enzymes Sitting in chair with no acute distress Pt said that she is not having any pain today Surgery reached to the daughter and consent obtained I called the daughter also and provided with update Spoke to daughter in details about the right pelvis mass that patient needs to follow with Gynecology outpatient Denies any chest pain, palpitation, dizziness and SOB Review of Systems Review of Systems: All systems reviewed & are unremarkable except as noted in Subjective Physical Exam Physical Exam: General- No acute distress Head- atraumatic Eyes- PERRL, EOMI, ENT- oropharynx clear Neck- supple, no JVD Lungs- clear to auscultation Heart- regular rhythm; no murmur Abdomen- Normal bowel sounds, Non tenderness Extremities- no calf tenderness Neuro- alert, oriented x 3; PERRL, EOMI; no facial palsy; no dysarthria Skin- warm & dry Results & Data Results & Data ([facility]) Vital Signs (Past 12 Hours) Vital Signs Temp Pulse Pulse Resp BP BP Pulse Ox 04/19/22 11:05 36.3 C L 76 18 148/74 H 95 04/19/22 09:39 80 04/19/22 07:32 36.3 C L 83 18 160/65 H 91 04/19/22 03:29 37.0 C 80 16 157/66 H 92 04/19/22 00:00 81 04/18/22 23:25 36.7 C 81 18 158/69 H 92 O2 Del Method 04/19/22 11:05 Room Air 04/19/22 09:39 04/19/22 07:32 Room Air 04/19/22 03:29 Room Air 04/19/22 00:00 04/18/22 23:25 Room Air
[2022-04-19] MEDS ORDERED: fentaNYL citrate 100 MCG/2 ML VIAL ONE (14:40)
[2022-04-19] MEDS ORDERED: ATROPINE SULFATE 0.1 MG/ML 10ML SYR IV PRN (14:41)
[2022-04-19] MEDS ORDERED: ONDANSETRON INJ 2 MG/ML 2 ML VIAL IV PRN (14:41)
[2022-04-19] MEDS ORDERED: MEPERIDINE HCL 25 MG/ML CARP/VIAL IV PRN (14:41)
[2022-04-19] MEDS ORDERED: HYDROmorphone INJ 1 MG/ML SYRINGE IV PRN (14:41)
[2022-04-19] MEDS ORDERED: ePHEDrine sulfate 50 MG/ML AMP IV PRN (14:41)
[2022-04-19] MEDS ORDERED: ROCURONIUM BROMIDE 10 MG/ML 5 ML VIAL IV ONE ×3 (14:44→16:50)
[2022-04-19] MEDS ORDERED: PROPOFOL IV EMULSION 10 MG/ML 20 ML VIAL IV ONE (14:44)
[2022-04-19] MEDS ORDERED: LIDOCAINE 2% 20 MG/ML 5 ML SYR IV ONE (14:44)
[2022-04-19] MEDS ORDERED: BUPIVACAINE/EPINEPHRINE 0.5% MPF 1:200,000 30 ML VIAL ONE (14:47)
[2022-04-19] MEDS ORDERED: ONDANSETRON INJ 2 MG/ML 2 ML VIAL ONE (14:49)
[2022-04-19] MEDS ORDERED: LACTATED RINGER'S 1,000 ML IV SCH (15:00)
--- NOTE | 2022-04-19 15:18 | History & Physical Bridge Note ---
Date of Service April 19, 2022 History & Physical Bridge Note I have examined the patient, reviewed the History & Physical and in the interval since the performance of the History & Physical I have noted the following changes of clinical significance: no changes noted I spoke with pt's steveugher this morning. discussed options/risks with her as well. she agrees with the plan. trent early this afternoon.
[2022-04-19] MEDS ORDERED: DEXAMETHASONE SOD INJ 4 MG/ML VIAL ONE (15:47)
[2022-04-19] MEDS ORDERED: NEOSTIGMINE METHYLSULFATE 1 MG/ML 10ML VIAL ONE (15:48)
--- NOTE | 2022-04-19 16:27 | Operative Report ---
PG Post Operative Report Pre & Post Diagnosis Operation Date: 04/19/22 09:10 Pre-Op Diagnosis: Cholelithiasis Post-Op Diagnosis: Cholelithiasis I identified the patient and participated in the time-out.: Yes Procedure Operation Date: 04/19/22 09:10 Actual Procedures p Laparoscopic Cholecystectomy - Jonathon Breen DO Surgeon Jonathon Breen DO Quarrying Manager derek Keyes Estimated Blood Loss 5 Findings Consistent with Post-Op Diagnosis Specimens gallbladder Description of Procedure After informed consent was obtained the patient was taken to the operating room and placed in the supine position. After successful intubation the abdomen was sterilely prepped and draped in usual fashion. A periumbilical incision was made with an 11 blade scalpel and carried down through the soft tissue using electrocautery. The anterior rectus fascia was opened using electrocautery and 2 #0 Vicryl stay sutures were placed. The peritoneum was elevated with hemostats and incised under direct vision using Metzenbaum scissors. A finger sweep was performed and a 12 mm Reynaga trocar was placed. The abdomen was insufflated to 18 mmHg. The laparoscope was inserted and the abdomen was examined in 360. No gross abnormalities were identified. A subxiphoid 5 mm port and 2 right upper quadrant 5 mm ports were placed under direct vision. The patient was placed in a reverse Trendelenburg position and slightly airplaned to the left. The gallbladder was grasped and elevated superiorly and laterally. A [place] dissector was used to take down adhesions around the neck of the gallbladder. The cystic duct was identified and skeletonized. It was clipped twice proximally and once distally and transected using a laparoscopic scissor. In similar fashion the cystic artery was identified and skeletonized clipped and divided. There was a small posterior branch that was clipped and divided as well. The gallbladder was removed from the gallbladder fossa with electrocautery. It was placed into an Endo Catch bag. Thorough irrigation was performed. At the end of the procedure there was adequate hemostasis and no evidence of any bile leaks. A final look around the abdomen showed no other abnormalities. The gallbladder and trochars were all removed and the abdomen was desufflated. The fascia of the camera port was closed using 0 Vicryl in a [id number] fashion. All the wounds were irrigated and closed using 4-0 Monocryl. Marcaine was injected around them for postoperative analgesia and skin glue used as a dressing. The patient was awaken extubated and transferred to recovery in stable condition. My physician's recruiting assistant was present throughout the entire case... helped with prepping the patient. With exposure for trocar placement, as well as retracted the gallbladder throughout the case and also assisted with wound closure and dressing placement. I attest to the content of the Intraoperative Record and any orders documented therein. Any exceptions are noted below.
[2022-04-19] MEDS ORDERED: SUGAMMADEX SODIUM 200 MG/2 ML VIAL IV ONE (16:30)
[2022-04-19] MEDS: fentaNYL citrate 100 MCG/2 ML VIAL IV PRN ×4 (16:47→17:19)
[2022-04-19] MEDS ORDERED: ESMOLOL HCL INJ 10 MG/ML 10ML VIAL IV ONE (16:49)
[2022-04-19] MEDS ORDERED: GLYCOPYRROLATE 0.2 MG/ML VIAL ONE (16:50)
--- NOTE | 2022-04-19 17:26 | Anesthesiology Progress Note ---
Date of Service April 19, 2022 Anesthesia Post Procedure Vital Signs Vital Signs: Temp Pulse Pulse Pulse Resp BP BP 04/19/22 17:20 36.6 C 84 14 141/53 H 04/19/22 17:10 79 21 141/58 H 04/19/22 17:00 80 14 156/64 H 04/19/22 16:50 85 20 150/97 H 04/19/22 16:43 36.1 C L 87 25 H 146/82 H 04/19/22 14:10 37.1 C 96 H 20 203/71 H 200/78 H 04/19/22 11:05 36.3 C L 76 18 148/74 H 04/19/22 09:39 80 04/18/22 23:00 04/19/22 07:32 36.3 C L 83 18 160/65 H 04/19/22 03:29 37.0 C 80 16 157/66 H 04/19/22 00:00 81 04/18/22 23:25 36.7 C 81 18 158/69 H 04/18/22 19:17 36.7 C 106 H 18 164/62 H 04/18/22 18:52 36.4 C L 114 H 18 183/66 H Pulse Ox Pulse Ox O2 Del Method O2 Del Method O2 Flow Rate 04/19/22 17:20 94 Oxymask 2 04/19/22 17:10 99 Oxymask 2 04/19/22 17:00 100 Oxymask 4 04/19/22 16:50 98 Oxymask 6 04/19/22 16:43 98 Oxymask 6 04/19/22 14:10 96 Room Air 04/19/22 11:05 95 Room Air 04/19/22 09:39 04/18/22 23:00 92 Room Air 04/19/22 07:32 91 Room Air 04/19/22 03:29 92 Room Air 04/19/22 00:00 04/18/22 23:25 92 Room Air 04/18/22 19:17 94 Room Air 04/18/22 18:52 94 Room Air Pain Intensity Generalized: Pain Intensity: 10 Abdomen: Pain Intensity: 4 Transfer of Care Handoff Completed per policy Notes Mental Status: alert / awake / arousable Patient Amnestic to Procedure: Yes Nausea / Vomiting: adequately controlled Pain: adequately controlled Airway Patency, RR, SpO2: stable & adequate BP & HR: stable & adequate Hydration State: stable & adequate Anesthetic Complications: no major complications apparent
[2022-04-20] MEDS: LEVOTHYROXINE SODIUM 25 MCG TABLET PO SCH (05:46)
[2022-04-20] MEDS: SODIUM CHLORIDE 0.9% 1000ML 1,000 ML IV SCH (05:49)
--- NOTE | 2022-04-20 07:43 | Surgery Progress Note ---
Date of Service April 20, 2022 Assessment & Plan (1) Cholelithiasis: Plan: POD#1 laparoscopic cholecystectomy Labs are pending Will advance diet as tolerates Pain controlled Incisions c/d/i If labs okay and pt tolerates diet, pain controlled may be discharged to home from our standpoint pending medical clearance Dispo instructions reviewed, f/u in clinic with Dr. Breen in 1-2 weeks As above. Overall doing okay. Because of her age and she lives alone she may need 1 or 2 more days in the hospital. Recommend physical therapy. [facility] covering the holiday if any concerns or questions Admission and Anticipated Discharge Date Admission Date: April 16, 2022 Subjective Patient is doing well. No complaints of pain at rest. No nausea/vomiting. Tolerating liquid diet. Reports a sore/dry throat. Physical Exam Physical Exam: awake/alert, no distress Respiratory: normal respiratory effort Gastrointestinal (Abdomen): Inspection/Auscultation: + abdominal surgical incision (c/d/i); abdomen not distended Percussion/Palpation: + abdomen tender (mild discomfort to palpation tamy incisionally) and abdomen soft Results & Data ([facility]) Vital Signs (Past 12 Hours) Vital Signs Temp Pulse Pulse Resp BP Pulse Ox O2 Del Method 04/20/22 03:00 36.5 C 79 20 162/74 H 96 Room Air 04/20/22 00:00 74 04/19/22 22:00 36.7 C 80 20 150/74 H 95 Room Air 04/19/22 20:00 36.7 C 98 H 20 151/72 H 93 Room Air PG Care Time/CCT Total # of Minutes Spent Total Time Spent with Patient: Total time spent is greater than 50% in coordination of care (as documented) at patient's floor/unit and/or counseling patient: Coding Level of Care Code None Diagnoses Cholelithiasis K80.20
[2022-04-20] MEDS ORDERED: COUGH DROP (SUGAR FREE) LOZ 24 LOZ/1 BOX BUCCAL PRN (07:50)
[2022-04-20 07:57] LABS: Basophils # (auto) 0.02 K/uL (0-0.2); Basophils % (auto) 0.2 %; Hematocrit (blood only) 38.2 % (34.1-44.9); Hemoglobin 12.9 g/dl (12.0-16.0); Immature Granulocytes # (auto) 0.05 K/uL (0.00-0.02); Immature Granulocytes % (auto) 0.5 %; Lymphocytes # (auto) 1.17 K/uL (1.2-3.4); Lymphocytes % (auto) 11.2 %; Mean Corpuscular Hemoglobin 28.9 pg (25.0-34.0); Mean Corpuscular Hgb Conc 33.8 g/dL (32.0-36.0); Mean Corpuscular Volume 85.5 fL (80.0-100.0); Mean Platelet Volume 9.7 fL (9.4-12.3); Monocytes # (auto) 0.45 K/uL (0.24-0.82); Monocytes % (auto) 4.3 %; Neutrophils # (auto) 8.78 K/uL (1.4-6.5); Neutrophils % (auto) 83.8 %; Platelet Count 312 K/uL (130-400); RDW Coefficient of Variation 13.2 % (11.5-14.5); RDW Standard Deviation 41.4 fL (36.4-46.3); Red Blood Count 4.47 M/uL (3.93-5.22); White Blood Count 10.47 K/ul (4.8-10.8)
[2022-04-20 08:19] LABS: Albumin Level 3.4 gm/dl (3.4-5.0); BUN Creatinine Ratio 18.6 (10-20); Bilirubin Direct 0.3 mg/dl (0-0.2); Bilirubin,Total 0.8 mg/dl (0.2-1.0); Calcium 8.6 mg/dl (8.5-10.1); Creatinine Clr Calc Pharmacy 85.6 ml/min; Est GFR (African American) 104.5 ml/min; Est GFR (Non-African American) 90.2 ml/min; Potassium 3.8 mmol/L (3.5-5.1); Total Protein 6.4 gm/dl (6.0-8.3)
[2022-04-20] MEDS: PANTOprazole 40 MG TAB PO SCH ×2 (08:47→20:09)
[2022-04-20] MEDS: lisinopril 10 MG TAB PO SCH (08:48)
[2022-04-20] MEDS: METOPROLOL TARTRATE 50 MG TAB PO SCH ×2 (08:48→20:09)
[2022-04-20] MEDS: amLODIPine BESYLATE 5 MG TAB PO SCH (08:48)
[2022-04-20] MEDS: ERTAPENEM SODIUM 1,000 MG in SYRINGE 0 ML IV SCH (08:52)
--- NOTE | 2022-04-20 10:59 | Hospitalist Progress Note ---
Date of Service April 20, 2022 Assessment & Plan (1) Abdominal pain: (2) Cholelithiasis: Plan: Present on admission with RUQ abdominal pain associated with nausea with emesis CT abd/pelvis showed cholelithiasis within a distended gallbladder. RUQ ultrasound showed cholelithiasis and biliary sludge with no sonographic evidence of acute cholecystitis. There is no intra or extrahepatic biliary ductal dilatation. MRCP showed cholelithiasis with gallbladder distention. No gallbladder wall thickening or pericholecystic fluid identified to suggest acute cholecystitis. Surgery and GI consulted No plan for ERCP/EUS since MRCP wo choledocholithiasis or biliary ductal dilation Continue abx with IV ertapenem Continue pain control and antiemetic S/p laparoscopic cholecystectomy 04/19 LFTs trending down. SIRS Met criteria on admission with tachycardia and leukocytosis Procalcitonin elevated WBC within normal limit now received Cefoxitin in the ER Currently on IV ertapenem Blood cx no growth Continue monitor Transaminitis Liver enzymes elevated with AST 288, ALT 286 and ALK 325 LFT continue to trend down with AST 41, ALT 95 and ALK 215 RUQ ultrasound showed cholelithiasis and biliary sludge with no sonographic evidence of acute cholecystitis. There is no intra or extrahepatic biliary ductal dilatation. GI consulted MRCP showed cholelithiasis with gallbladder distention. No gallbladder wall thickening or pericholecystic fluid identified to suggest acute cholecystitis. Continue monitor LFT - trending down Hyponatremia Possible related to poor oral intake/vomiting Na 125 and urine osmolarity low on admission Na 133 today Continue gentle IVF Continue monitor BMP Right Adnexa mass Vaginal U/S showed 13.7 cm largely simple appearing cystic lesion in the right adnexa, likely related to the right ovary. MRCP showed Large pelvic cystic mass re-demonstrated, suspicious for an ovarian epithelial neoplasm. Gynecology consulted Ca 125 pending Daughter Loretta was informed about the pelvis mass on the the phone and she understands that pt need to be followed with Gynecology will likely need to be seen by [facility] oncology in [place] if she is a surgical candidate Elevate glucose Hgba1c 5.5% Continue monitor glucose DVT - SCDs, hold Lovenox subq as just had surgery CODE Status Full code Patient daughter - Ms. Reina Resendiz, contact #[phone]. Admission and Anticipated Discharge Date Admission Date: April 16, 2022 Subjective Pt was seen and examined for follow up of abdominal pain and elevated liver enzymes s/p cholecystectomy yesterday Sitting up in chair in no acute distress Has some mild abd. pain, but overall feels well She feels somewhat weak though Previous hospitalist spoke to daughter in detail about the right pelvis mass that patient needs to follow with Gynecology outpatient Denies any chest pain, palpitation, dizziness and SOB PT/OT eval Review of Systems Review of Systems: All systems reviewed & are unremarkable except as noted in Subjective Physical Exam Physical Exam: General- elderly F in no acute distress Head- atraumatic Eyes- PERRL, EOMI ENT- oropharynx clear Neck- supple Lungs- clear to auscultation Heart- regular rhythm; no murmur Abdomen- Normal bowel sounds, Non tenderness Extremities- no calf tenderness, moves extremities Neuro- alert, oriented x 3; PERRL, EOMI; no facial palsy; no dysarthria, moves extremities Skin- warm & dry Results & Data Results & Data ([facility]) Vital Signs (Past 12 Hours) Vital Signs Temp Pulse Pulse Resp BP Pulse Ox O2 Del Method 04/20/22 07:24 36.7 C 84 16 176/69 H 95 Room Air 04/20/22 03:00 36.5 C 79 20 162/74 H 96 Room Air 04/20/22 00:00 74 Laboratory Results 04/20/22 04/20/22 Range/Units 07:17 07:17 WBC 10.47 (4.8-10.8) K/ul RBC 4.47 (3.93-5.22) M/uL Hgb 12.9 (12.0-16.0) g/dl Hct 38.2 (34.1-44.9) % MCV 85.5 (80.0-100.0) fL MCH 28.9 (25.0-34.0) pg MCHC 33.8 (32.0-36.0) g/dL RDW Std Deviation 41.4 (36.4-46.3) fL RDW Coeff of Naresh 13.2 (11.5-14.5) % Plt Count 312 (130-400) K/uL MPV 9.7 (9.4-12.3) fL Immature Gran % (Auto) 0.5 % Neut % (Auto) 83.8 % Lymph % (Auto) 11.2 % Traverse % (Auto) 4.3 % Eos % (Auto) 0.0 % Baso % (Auto) 0.2 % Neut # (Auto) 8.78 H (1.4-6.5) K/uL Lymph # (Auto) 1.17 L (1.2-3.4) K/uL Traverse # (Auto) 0.45 (0.24-0.82) K/uL Eos # (Auto) 0.00 (0-0.50) K/uL Baso # (Auto) 0.02 (0-0.2) K/uL Immature Gran # (Auto) 0.05 H (0.00-0.02) K/uL Sodium 135 L (136-145) mmol/L Potassium 3.8 (3.5-5.1) mmol/L Chloride 100 (98-107) mmol/L Carbon Dioxide 24 (21-32) mmol/L Anion Gap 11 (3-11) BUN 8 (6-23) mg/dl Creatinine 0.43 L (0.6-1.2) mg/dl Est Cr Clr Drug Dosing 85.6 ml/min Est GFR ( Amer) 104.5 ml/min Est GFR (Non-Af Amer) 90.2 ml/min BUN/Creatinine Ratio 18.6 (10-20) Glucose 90 (70-99(Fasting)) mg/dl Calcium 8.6 (8.5-10.1) mg/dl Total Bilirubin 0.8 (0.2-1.0) mg/dl Direct Bilirubin 0.3 H (0-0.2) mg/dl AST 41 H (13-39) U/L ALT 84 H (7-52) U/L Alkaline Phosphatase 231 H (34-104) U/L Total Protein 6.4 (6.0-8.3) gm/dl Albumin 3.4 (3.4-5.0) gm/dl Medications Administered Current Inpatient Medications Acetaminophen (Acetaminophen 500 Mg Tab) 500 mg PO Q6H PRN PRN Reason: pain/fever Stop: 05/16/22 23:38 Last Admin: 04/17/22 14:25 Dose: 500 mg Amlodipine Besylate (Amlodipine Besylate 5 Mg Tab) 5 mg PO DAILY MELISSA Stop: 05/17/22 08:59 Last Admin: 04/20/22 08:48 Dose: 5 mg Promethazine HCl 6.25 mg/ (Sodium Chloride) 50.25 mls @ 201 mls/hr IV Q6H PRN PRN Reason: Nausea And Vomiting Stop: 05/16/22 22:57 Ertapenem 1,000 mg/ Syringe 10 mls @ 2 mls/min IV Q24H REPLACED BY [facility] Stop: 04/27/22 08:59 Last Admin: 04/20/22 08:52 Dose: 2 mls/min Levothyroxine Sodium (Levothyroxine Sodium 25 Mcg Tablet) 25 mcg PO DAILYBB REPLACED BY [facility] Stop: 05/17/22 06:29 Last Admin: 04/20/22 05:46 Dose: 25 mcg Lisinopril (Lisinopril 10 Mg Tab) 30 mg PO DAILY REPLACED BY [facility] Stop: 05/17/22 08:59 Last Admin: 04/20/22 08:48 Dose: 30 mg Loratadine (Loratadine 10 Mg Tab) 10 mg PO DAILY PRN PRN Reason: Allergy Symptoms Stop: 05/16/22 23:38 Last Admin: 04/17/22 07:58 Dose: 10 mg Lorazepam (Lorazepam 0.5 Mg Tab) 0.25 mg PO TID PRN PRN Reason: Anxiety Stop: 05/16/22 22:51 Menthol (Cough Drop (Sugar Free) Izabella 24 Izabella/1 Box) 1 izabella BUCCAL Q3H PRN PRN Reason: Sore Throat Stop: 05/20/22 07:49 Metoprolol Tartrate (Metoprolol Tartrate 50 Mg Tab) 50 mg PO BID REPLACED BY [facility] Stop: 05/17/22 08:59 Last Admin: 04/20/22 08:48 Dose: 50 mg Morphine Sulfate (Morphine Sulfate 2 Mg/Ml Carp) 2 mg IV Q3H PRN PRN Reason: Pain Stop: 04/30/22 22:53 Ondansetron HCl (Ondansetron Inj 2 Mg/Ml 2 Ml Vial) 4 mg IV Q6H PRN PRN Reason: Nausea And Vomiting Stop: 05/17/22 08:51 Last Admin: 04/17/22 09:15 Dose: 4 mg Oxycodone HCl (Oxycodone Hcl Ir 5 Mg Tab (Immediate Release)) 5 mg PO Q4H PRN PRN Reason: Pain Stop: 04/30/22 22:55 Last Admin: 04/19/22 21:21 Dose: 5 mg Pantoprazole Sodium (Pantoprazole 40 Mg Tab) 40 mg PO BID MELISSA Stop: 05/17/22 08:59 Last Admin: 04/20/22 08:47 Dose: 40 mg Polyethylene Glycol (Polyethylene (Miralax) 17 Gm Pack) 17 gm PO DAILY PRN PRN Reason: Constipation Stop: 05/16/22 23:38
[2022-04-20] MEDS: ACETAMINOPHEN 500 MG TAB PO PRN (20:07)
[2022-04-21] MEDS: LEVOTHYROXINE SODIUM 25 MCG TABLET PO SCH (06:05)
[2022-04-21 06:21] LABS: Hematocrit (blood only) 35.3 % (34.1-44.9); Hemoglobin 12.1 g/dl (12.0-16.0); Mean Corpuscular Hemoglobin 28.9 pg (25.0-34.0); Mean Corpuscular Hgb Conc 34.3 g/dL (32.0-36.0); Mean Corpuscular Volume 84.4 fL (80.0-100.0); Mean Platelet Volume 9.8 fL (9.4-12.3); Platelet Count 302 K/uL (130-400); RDW Coefficient of Variation 13.4 % (11.5-14.5); RDW Standard Deviation 41.6 fL (36.4-46.3); Red Blood Count 4.18 M/uL (3.93-5.22); White Blood Count 8.93 K/ul (4.8-10.8)
[2022-04-21 06:48] LABS: Albumin Globulin Ratio 1.1 (0.9-2); Albumin Level 3.2 gm/dl (3.4-5.0); Bilirubin,Total 0.8 mg/dl (0.2-1.0); Calcium 8.8 mg/dl (8.5-10.1); Creatinine Clr Calc Pharmacy 84.1 ml/min; Est GFR (African American) 103.7 ml/min; Est GFR (Non-African American) 89.5 ml/min; Globulin 2.8 gm/dl (2.5-4.0); Magnesium 1.6 mg/dl (1.7-2.4); Phosphorus 2.9 mg/dl (2.5-4.9); Potassium 3.4 mmol/L (3.5-5.1)
[2022-04-21] MEDS ORDERED: POTASSIUM CHLORIDE PWD 20 MEQ PACK PO ONE (08:08)
--- NOTE | 2022-04-21 08:12 | Hospitalist Progress Note ---
Date of Service April 21, 2022 Assessment & Plan (1) Abdominal pain: (2) Cholelithiasis: Plan: Present on admission with RUQ abdominal pain associated with nausea with emesis CT abd/pelvis showed cholelithiasis within a distended gallbladder. RUQ ultrasound showed cholelithiasis and biliary sludge with no sonographic evidence of acute cholecystitis. There is no intra or extrahepatic biliary ductal dilatation. MRCP showed cholelithiasis with gallbladder distention. No gallbladder wall thickening or pericholecystic fluid identified to suggest acute cholecystitis. Surgery and GI consulted No plan for ERCP/EUS since MRCP wo choledocholithiasis or biliary ductal dilation Continue abx with IV ertapenem Continue pain control and antiemetic S/p laparoscopic cholecystectomy 04/19 LFTs trending down. SIRS Met criteria on admission with tachycardia and leukocytosis Procalcitonin elevated WBC within normal limit now received Cefoxitin in the ER Currently on IV ertapenem Blood cx no growth Continue monitor Transaminitis Liver enzymes elevated with AST 288, ALT 286 and ALK 325 LFT continue to trend down with AST 41, ALT 95 and ALK 215 RUQ ultrasound showed cholelithiasis and biliary sludge with no sonographic evidence of acute cholecystitis. There is no intra or extrahepatic biliary ductal dilatation. GI consulted MRCP showed cholelithiasis with gallbladder distention. No gallbladder wall thickening or pericholecystic fluid identified to suggest acute cholecystitis. Continue monitor LFT - trending down Hyponatremia Possible related to poor oral intake/vomiting Na 125 and urine osmolarity low on admission Na 134 today Continue gentle IVF Continue monitor BMP Right Adnexa mass Vaginal U/S showed 13.7 cm largely simple appearing cystic lesion in the right adnexa, likely related to the right ovary. MRCP showed Large pelvic cystic mass re-demonstrated, suspicious for an ovarian epithelial neoplasm. Gynecology consulted Ca 125 level 18 Daughter Loretta was informed about the pelvis mass on the the phone and she understands that pt need to be followed with Gynecology will likely need to be seen by [facility] oncology in [place] if she is a surgical candidate Elevate glucose Hgba1c 5.5% Continue monitor glucose DVT - SCDs CODE Status Full code Patient daughter - Ms. Reina Resendiz, contact #[phone]. Admission and Anticipated Discharge Date Admission Date: April 16, 2022 Subjective Pt was seen and examined for follow up of abdominal pain and elevated liver enzymes s/p cholecystectomy Currently lying in bed in no acute distress Has some mild abd. pain, but overall feels better She feels somewhat weak though Previous hospitalist spoke to daughter in detail about the right pelvis mass that patient needs to follow with Gynecology outpatient Denies any chest pain, palpitation, dizziness and SOB PT/OT eval obtained - recommend rehab -CM involved Review of Systems Review of Systems: All systems reviewed & are unremarkable except as noted in Subjective Physical Exam Physical Exam: General- elderly F in no acute distress Head- atraumatic Eyes- PERRL, EOMI ENT- oropharynx clear Neck- supple Lungs- clear to auscultation Heart- regular rhythm; no murmur Abdomen- Normal bowel sounds, Non tenderness Extremities- no calf tenderness, moves extremities Neuro- alert, oriented x 3; PERRL, EOMI; no facial palsy; no dysarthria, moves extremities Skin- warm & dry Results & Data Results & Data ([facility]) Vital Signs (Past 12 Hours) Vital Signs Temp Pulse Pulse Resp BP Pulse Ox O2 Del Method 04/21/22 08:05 36.6 C 79 18 176/75 H 90 Room Air 04/21/22 03:00 36.8 C 75 20 172/82 H 94 Room Air 04/21/22 00:00 73 04/20/22 22:00 36.8 C 83 20 135/67 92 Room Air Laboratory Results 04/21/22 04/21/22 04/20/22 Range/Units 05:55 05:55 07:17 WBC 8.93 (4.8-10.8) K/ul RBC 4.18 (3.93-5.22) M/uL Hgb 12.1 (12.0-16.0) g/dl Hct 35.3 (34.1-44.9) % MCV 84.4 (80.0-100.0) fL MCH 28.9 (25.0-34.0) pg MCHC 34.3 (32.0-36.0) g/dL RDW Std Deviation 41.6 (36.4-46.3) fL RDW Coeff of Naresh 13.4 (11.5-14.5) % Plt Count 302 (130-400) K/uL MPV 9.8 (9.4-12.3) fL Sodium 134 L 135 L (136-145) mmol/L Potassium 3.4 L 3.8 (3.5-5.1) mmol/L Chloride 100 100 (98-107) mmol/L Carbon Dioxide 29 24 (21-32) mmol/L Anion Gap 5 11 (3-11) BUN 11 8 (6-23) mg/dl Creatinine 0.44 L 0.43 L (0.6-1.2) mg/dl Est Cr Clr Drug Dosing 84.1 85.6 ml/min Est GFR ( Amer) 103.7 104.5 ml/min Est GFR (Non-Af Amer) 89.5 90.2 ml/min BUN/Creatinine Ratio 25.0 H 18.6 (10-20) Glucose 97 90 (70-99(Fasting)) mg/dl Calcium 8.8 8.6 (8.5-10.1) mg/dl Phosphorus 2.9 (2.5-4.9) mg/dl Magnesium 1.6 L (1.7-2.4) mg/dl Total Bilirubin 0.8 0.8 (0.2-1.0) mg/dl Direct Bilirubin 0.3 H (0-0.2) mg/dl AST 29 41 H (13-39) U/L ALT 62 H 84 H (7-52) U/L Alkaline Phosphatase 189 H 231 H (34-104) U/L Total Protein 6.0 6.4 (6.0-8.3) gm/dl Albumin 3.2 L 3.4 (3.4-5.0) gm/dl Globulin 2.8 (2.5-4.0) gm/dl Albumin/Globulin Ratio 1.1 (0.9-2) CA 125 Antigen (<35) U/mL 04/19/22 Range/Units 06:55 WBC (4.8-10.8) K/ul RBC (3.93-5.22) M/uL Hgb (12.0-16.0) g/dl Hct (34.1-44.9) % MCV (80.0-100.0) fL MCH (25.0-34.0) pg MCHC (32.0-36.0) g/dL RDW Std Deviation (36.4-46.3) fL RDW Coeff of Naresh (11.5-14.5) % Plt Count (130-400) K/uL MPV (9.4-12.3) fL Sodium (136-145) mmol/L Potassium (3.5-5.1) mmol/L Chloride (98-107) mmol/L Carbon Dioxide (21-32) mmol/L Anion Gap (3-11) BUN (6-23) mg/dl Creatinine (0.6-1.2) mg/dl Est Cr Clr Drug Dosing ml/min Est GFR ( Amer) ml/min Est GFR (Non-Af Amer) ml/min BUN/Creatinine Ratio (10-20) Glucose (70-99(Fasting)) mg/dl Calcium (8.5-10.1) mg/dl Phosphorus (2.5-4.9) mg/dl Magnesium (1.7-2.4) mg/dl Total Bilirubin (0.2-1.0) mg/dl Direct Bilirubin (0-0.2) mg/dl AST (13-39) U/L ALT (7-52) U/L Alkaline Phosphatase (34-104) U/L Total Protein (6.0-8.3) gm/dl Albumin (3.4-5.0) gm/dl Globulin (2.5-4.0) gm/dl Albumin/Globulin Ratio (0.9-2) CA 125 Antigen 18 (<35) U/mL Medications Administered Current Inpatient Medications Acetaminophen (Acetaminophen 500 Mg Tab) 500 mg PO Q6H PRN PRN Reason: pain/fever Stop: 05/16/22 23:38 Last Admin: 04/20/22 20:07 Dose: 500 mg Amlodipine Besylate (Amlodipine Besylate 5 Mg Tab) 5 mg PO DAILY [facility] Stop: 05/17/22 08:59 Last Admin: 04/20/22 08:48 Dose: 5 mg Promethazine HCl 6.25 mg/ (Sodium Chloride) 50.25 mls @ 201 mls/hr IV Q6H PRN PRN Reason: Nausea And Vomiting Stop: 05/16/22 22:57 Ertapenem 1,000 mg/ Syringe 10 mls @ 2 mls/min IV Q24H [facility] Stop: 04/27/22 08:59 Last Admin: 04/20/22 08:52 Dose: 2 mls/min Levothyroxine Sodium (Levothyroxine Sodium 25 Mcg Tablet) 25 mcg PO DAILYBB [facility] Stop: 05/17/22 06:29 Last Admin: 04/21/22 06:05 Dose: 25 mcg Lisinopril (Lisinopril 10 Mg Tab) 30 mg PO DAILY [facility] Stop: 05/17/22 08:59 Last Admin: 04/20/22 08:48 Dose: 30 mg Loratadine (Loratadine 10 Mg Tab) 10 mg PO DAILY PRN PRN Reason: Allergy Symptoms Stop: 05/16/22 23:38 Last Admin: 04/17/22 07:58 Dose: 10 mg Lorazepam (Lorazepam 0.5 Mg Tab) 0.25 mg PO TID PRN PRN Reason: Anxiety Stop: 05/16/22 22:51 Magnesium Oxide (Magnesium Oxide 400 Mg Tab) 400 mg PO BID [facility] Stop: 05/21/22 08:59 Menthol (Cough Drop (Sugar Free) Izabella 24 Izabella/1 Box) 1 izabella BUCCAL Q3H PRN PRN Reason: Sore Throat Stop: 05/20/22 07:49 Metoprolol Tartrate (Metoprolol Tartrate 50 Mg Tab) 50 mg PO BID [facility] Stop: 05/17/22 08:59 Last Admin: 04/20/22 20:09 Dose: 50 mg Morphine Sulfate (Morphine Sulfate 2 Mg/Ml Carp) 2 mg IV Q3H PRN PRN Reason: Pain Stop: 04/30/22 22:53 Ondansetron HCl (Ondansetron Inj 2 Mg/Ml 2 Ml Vial) 4 mg IV Q6H PRN PRN Reason: Nausea And Vomiting Stop: 05/17/22 08:51 Last Admin: 04/17/22 09:15 Dose: 4 mg Oxycodone HCl (Oxycodone Hcl Ir 5 Mg Tab (Immediate Release)) 5 mg PO Q4H PRN PRN Reason: Pain Stop: 04/30/22 22:55 Last Admin: 04/19/22 21:21 Dose: 5 mg Pantoprazole Sodium (Pantoprazole 40 Mg Tab) 40 mg PO BID [facility] Stop: 05/17/22 08:59 Last Admin: 04/20/22 20:09 Dose: 40 mg Polyethylene Glycol (Polyethylene (Miralax) 17 Gm Pack) 17 gm PO DAILY PRN PRN Reason: Constipation Stop: 05/16/22 23:38 Potassium Chloride (Potassium Chloride Pwd 20 Meq Pack) 20 meq PO ONE ONE Stop: 04/21/22 08:09
[2022-04-21] MEDS: ERTAPENEM SODIUM 1,000 MG in SYRINGE 0 ML IV SCH (09:11)
[2022-04-21] MEDS: METOPROLOL TARTRATE 50 MG TAB PO SCH ×2 (09:12→21:35)
[2022-04-21] MEDS: PANTOprazole 40 MG TAB PO SCH ×2 (09:12→21:35)
[2022-04-21] MEDS: lisinopril 10 MG TAB PO SCH (09:12)
[2022-04-21] MEDS: MAGNESIUM OXIDE 400 MG TAB PO SCH ×2 (09:13→21:35)
[2022-04-21] MEDS: amLODIPine BESYLATE 5 MG TAB PO SCH (09:45)
--- NOTE | 2022-04-21 12:06 | Surgery Progress Note ---
Date of Service April 21, 2022 Assessment & Plan (1) Cholelithiasis: Plan: POD#2 laparoscopic cholecystectomy Tolerating diet Pain controlled Incisions c/d/i If labs okay and pt tolerates diet, pain controlled may be discharged to home from our standpoint pending medical clearance Dispo instructions reviewed, f/u in clinic with Dr. Breen in 1-2 weeks Admission and Anticipated Discharge Date Admission Date: April 16, 2022 Subjective Doing well. No complaints Physical Exam Gastrointestinal (Abdomen): Inspection/Auscultation: + abdominal surgical incision (c/d/i); abdomen not distended Percussion/Palpation: + abdomen tender (mild discomfort to palpation tamy incisionally) and abdomen soft Results & Data ([facility]) Vital Signs (Past 12 Hours) Vital Signs Temp Pulse Resp BP Pulse Ox O2 Del Method 04/21/22 08:05 36.6 C 79 18 176/75 H 90 Room Air 04/21/22 03:00 36.8 C 75 20 172/82 H 94 Room Air
[2022-04-22] MEDS: LEVOTHYROXINE SODIUM 25 MCG TABLET PO SCH (06:47)
[2022-04-22 07:04] LABS: Hematocrit (blood only) 36.4 % (34.1-44.9); Hemoglobin 12.1 g/dl (12.0-16.0); Mean Corpuscular Hemoglobin 28.9 pg (25.0-34.0); Mean Corpuscular Hgb Conc 33.2 g/dL (32.0-36.0); Mean Corpuscular Volume 86.9 fL (80.0-100.0); Mean Platelet Volume 9.4 fL (9.4-12.3); Platelet Count 285 K/uL (130-400); RDW Coefficient of Variation 13.5 % (11.5-14.5); RDW Standard Deviation 42.6 fL (36.4-46.3); Red Blood Count 4.19 M/uL (3.93-5.22); White Blood Count 9.98 K/ul (4.8-10.8)
[2022-04-22 07:27] LABS: Albumin Globulin Ratio 1.1 (0.9-2); Albumin Level 3.1 gm/dl (3.4-5.0); BUN Creatinine Ratio 23.9 (10-20); Bilirubin,Total 0.7 mg/dl (0.2-1.0); Calcium 8.4 mg/dl (8.5-10.1); Creatinine Clr Calc Pharmacy 82.6 ml/min; Est GFR (African American) 102.2 ml/min; Est GFR (Non-African American) 88.2 ml/min; Globulin 2.7 gm/dl (2.5-4.0); Magnesium 1.6 mg/dl (1.7-2.4); Phosphorus 2.9 mg/dl (2.5-4.9); Potassium 3.8 mmol/L (3.5-5.1); Total Protein 5.8 gm/dl (6.0-8.3)
--- NOTE | 2022-04-22 08:00 | Hospitalist Progress Note ---
Date of Service April 22, 2022 Assessment & Plan (1) Abdominal pain: (2) Cholelithiasis: Plan: Present on admission with RUQ abdominal pain associated with nausea with emesis CT abd/pelvis showed cholelithiasis within a distended gallbladder. RUQ ultrasound showed cholelithiasis and biliary sludge with no sonographic evidence of acute cholecystitis. There is no intra or extrahepatic biliary ductal dilatation. MRCP showed cholelithiasis with gallbladder distention. No gallbladder wall thickening or pericholecystic fluid identified to suggest acute cholecystitis. Surgery and GI consulted No plan for ERCP/EUS since MRCP wo choledocholithiasis or biliary ductal dilation Continued abx with IV ertapenem - now stopped Continue pain control and antiemetic S/p laparoscopic cholecystectomy 04/19 LFTs trending down. SIRS Met criteria on admission with tachycardia and leukocytosis Procalcitonin elevated WBC within normal limit now received Cefoxitin in the ER on IV ertapenem while inpt - stopped now Blood cx - negative Continue monitor Transaminitis Liver enzymes elevated with AST 288, ALT 286 and ALK 325 LFT continue to trend down with AST 41, ALT 95 and ALK 215 RUQ ultrasound showed cholelithiasis and biliary sludge with no sonographic evidence of acute cholecystitis. There is no intra or extrahepatic biliary ductal dilatation. GI consulted MRCP showed cholelithiasis with gallbladder distention. No gallbladder wall thickening or pericholecystic fluid identified to suggest acute cholecystitis. Continue monitor LFT - trending down AST, ALT normal now, alk phos down to 165 Hyponatremia Possible related to poor oral intake/vomiting Na 125 and urine osmolarity low on admission Na 136 today received gentle IVF Continue monitor BMP Right Adnexa mass Vaginal U/S showed 13.7 cm largely simple appearing cystic lesion in the right adnexa, likely related to the right ovary. MRCP showed Large pelvic cystic mass re-demonstrated, suspicious for an ovarian epithelial neoplasm. Gynecology consulted Ca 125 level 18 Daughter Loretta was informed about the pelvis mass on the the phone and she understands that pt need to be followed with Gynecology will likely need to be seen by [facility] oncology in [place] if she is a surgical candidate Elevate glucose Hgba1c 5.5% Continue monitor glucose DVT - SCDs CODE Status Full code Patient daughter - Ms. Reina Resendiz, contact #[phone]. Admission and Anticipated Discharge Date Admission Date: April 16, 2022 Subjective Pt was seen and examined for follow up of abdominal pain and elevated liver enzymes s/p cholecystectomy Currently sitting up in chair in no acute distress Has some mild abd. pain, but overall feels better She feels somewhat weak though Previous hospitalist spoke to daughter in detail about the right pelvis mass that patient needs to follow with Gynecology outpatient Denies any chest pain, palpitation, dizziness and SOB PT/OT eval obtained - recommend rehab -CM involved Review of Systems Review of Systems: All systems reviewed & are unremarkable except as noted in Subjective Physical Exam Physical Exam: General- elderly F in no acute distress Head- atraumatic Eyes- PERRL, EOMI ENT- oropharynx clear Neck- supple Lungs- clear to auscultation Heart- regular rhythm; no murmur Abdomen- Normal bowel sounds, Non tenderness Extremities- no calf tenderness, moves extremities Neuro- alert, oriented x 3; PERRL, EOMI; no facial palsy; no dysarthria, moves extremities Skin- warm & dry Results & Data Results & Data ([facility]) Vital Signs (Past 12 Hours) Vital Signs Temp Pulse Pulse Resp BP Pulse Ox Pulse Ox 04/22/22 03:20 36.9 C 75 20 134/73 91 04/21/22 22:13 76 04/21/22 23:00 93 04/21/22 23:00 36.7 C 78 18 158/75 H 93 O2 Del Method O2 Del Method 04/22/22 03:20 Room Air 04/21/22 22:13 04/21/22 23:00 Room Air 04/21/22 23:00 Room Air Laboratory Results 04/22/22 04/22/22 Range/Units 06:39 06:39 WBC 9.98 (4.8-10.8) K/ul RBC 4.19 (3.93-5.22) M/uL Hgb 12.1 (12.0-16.0) g/dl Hct 36.4 (34.1-44.9) % MCV 86.9 (80.0-100.0) fL MCH 28.9 (25.0-34.0) pg MCHC 33.2 (32.0-36.0) g/dL RDW Std Deviation 42.6 (36.4-46.3) fL RDW Coeff of Naresh 13.5 (11.5-14.5) % Plt Count 285 (130-400) K/uL MPV 9.4 (9.4-12.3) fL Sodium 136 (136-145) mmol/L Potassium 3.8 (3.5-5.1) mmol/L Chloride 100 (98-107) mmol/L Carbon Dioxide 31 (21-32) mmol/L Anion Gap 5 (3-11) BUN 11 (6-23) mg/dl Creatinine 0.46 L (0.6-1.2) mg/dl Est Cr Clr Drug Dosing 82.6 ml/min Est GFR ( Amer) 102.2 ml/min Est GFR (Non-Af Amer) 88.2 ml/min BUN/Creatinine Ratio 23.9 H (10-20) Glucose 95 (70-99(Fasting)) mg/dl Calcium 8.4 L (8.5-10.1) mg/dl Phosphorus 2.9 (2.5-4.9) mg/dl Magnesium 1.6 L (1.7-2.4) mg/dl Total Bilirubin 0.7 (0.2-1.0) mg/dl AST 19 (13-39) U/L ALT 45 (7-52) U/L Alkaline Phosphatase 165 H (34-104) U/L Total Protein 5.8 L (6.0-8.3) gm/dl Albumin 3.1 L (3.4-5.0) gm/dl Globulin 2.7 (2.5-4.0) gm/dl Albumin/Globulin Ratio 1.1 (0.9-2) Medications Administered Current Inpatient Medications Acetaminophen (Acetaminophen 500 Mg Tab) 500 mg PO Q6H PRN PRN Reason: pain/fever Stop: 05/16/22 23:38 Last Admin: 04/20/22 20:07 Dose: 500 mg Amlodipine Besylate (Amlodipine Besylate 5 Mg Tab) 5 mg PO DAILY [facility] Stop: 05/17/22 08:59 Last Admin: 04/21/22 09:45 Dose: 5 mg Promethazine HCl 6.25 mg/ (Sodium Chloride) 50.25 mls @ 201 mls/hr IV Q6H PRN PRN Reason: Nausea And Vomiting Stop: 05/16/22 22:57 Ertapenem 1,000 mg/ Syringe 10 mls @ 2 mls/min IV Q24H [facility] Stop: 04/27/22 08:59 Last Admin: 04/21/22 09:11 Dose: 2 mls/min Levothyroxine Sodium (Levothyroxine Sodium 25 Mcg Tablet) 25 mcg PO DAILYBB [facility] Stop: 05/17/22 06:29 Last Admin: 04/22/22 06:47 Dose: 25 mcg Lisinopril (Lisinopril 10 Mg Tab) 30 mg PO DAILY [facility] Stop: 05/17/22 08:59 Last Admin: 04/21/22 09:12 Dose: 30 mg Loratadine (Loratadine 10 Mg Tab) 10 mg PO DAILY PRN PRN Reason: Allergy Symptoms Stop: 05/16/22 23:38 Last Admin: 04/17/22 07:58 Dose: 10 mg Lorazepam (Lorazepam 0.5 Mg Tab) 0.25 mg PO TID PRN PRN Reason: Anxiety Stop: 05/16/22 22:51 Magnesium Oxide (Magnesium Oxide 400 Mg Tab) 400 mg PO BID [facility] Stop: 05/21/22 08:59 Last Admin: 04/21/22 21:35 Dose: 400 mg Menthol (Cough Drop (Sugar Free) Izabella 24 Izabella/1 Box) 1 izabella BUCCAL Q3H PRN PRN Reason: Sore Throat Stop: 05/20/22 07:49 Metoprolol Tartrate (Metoprolol Tartrate 50 Mg Tab) 50 mg PO BID [facility] Stop: 05/17/22 08:59 Last Admin: 04/21/22 21:35 Dose: 50 mg Morphine Sulfate (Morphine Sulfate 2 Mg/Ml Carp) 2 mg IV Q3H PRN PRN Reason: Pain Stop: 04/30/22 22:53 Ondansetron HCl (Ondansetron Inj 2 Mg/Ml 2 Ml Vial) 4 mg IV Q6H PRN PRN Reason: Nausea And Vomiting Stop: 05/17/22 08:51 Last Admin: 04/17/22 09:15 Dose: 4 mg Oxycodone HCl (Oxycodone Hcl Ir 5 Mg Tab (Immediate Release)) 5 mg PO Q4H PRN PRN Reason: Pain Stop: 04/30/22 22:55 Last Admin: 04/19/22 21:21 Dose: 5 mg Pantoprazole Sodium (Pantoprazole 40 Mg Tab) 40 mg PO BID [facility] Stop: 05/17/22 08:59 Last Admin: 04/21/22 21:35 Dose: 40 mg Polyethylene Glycol (Polyethylene (Miralax) 17 Gm Pack) 17 gm PO DAILY PRN PRN Reason: Constipation Stop: 05/16/22 23:38
[2022-04-22] MEDS: ERTAPENEM SODIUM 1,000 MG in SYRINGE 0 ML IV SCH (10:55)
[2022-04-22] MEDS: amLODIPine BESYLATE 5 MG TAB PO SCH (10:56)
[2022-04-22] MEDS: PANTOprazole 40 MG TAB PO SCH ×2 (10:56→20:39)
[2022-04-22] MEDS: lisinopril 10 MG TAB PO SCH (10:56)
[2022-04-22] MEDS: MAGNESIUM OXIDE 400 MG TAB PO SCH ×2 (10:56→20:39)
[2022-04-22] MEDS: METOPROLOL TARTRATE 50 MG TAB PO SCH ×2 (10:56→20:39)
[2022-04-22] MEDS: ACETAMINOPHEN 500 MG TAB PO PRN (11:01)
[2022-04-22] MEDS ORDERED: MAGNESIUM SULFATE / D5W 1 GM/100 ML BAG IV ONE (14:29)
[2022-04-23] MEDS: LEVOTHYROXINE SODIUM 25 MCG TABLET PO SCH (06:12)
[2022-04-23 07:30] LABS: Hematocrit (blood only) 41.2 % (34.1-44.9); Hemoglobin 13.7 g/dl (12.0-16.0); Mean Corpuscular Hgb Conc 33.3 g/dL (32.0-36.0); Mean Corpuscular Volume 87.1 fL (80.0-100.0); Mean Platelet Volume 9.8 fL (9.4-12.3); Platelet Count 389 K/uL (130-400); RDW Coefficient of Variation 13.6 % (11.5-14.5); RDW Standard Deviation 43.4 fL (36.4-46.3); Red Blood Count 4.73 M/uL (3.93-5.22); White Blood Count 12.18 K/ul (4.8-10.8)
--- NOTE | 2022-04-23 07:50 | Hospitalist Progress Note ---
Date of Service April 23, 2022 Assessment & Plan (1) Abdominal pain: (2) Cholelithiasis: Plan: Present on admission with RUQ abdominal pain associated with nausea with emesis CT abd/pelvis showed cholelithiasis within a distended gallbladder. RUQ ultrasound showed cholelithiasis and biliary sludge with no sonographic evidence of acute cholecystitis. There is no intra or extrahepatic biliary ductal dilatation. MRCP showed cholelithiasis with gallbladder distention. No gallbladder wall thickening or pericholecystic fluid identified to suggest acute cholecystitis. Surgery and GI consulted No plan for ERCP/EUS since MRCP wo choledocholithiasis or biliary ductal dilation Continued abx with IV ertapenem - now stopped Continue pain control and antiemetic S/p laparoscopic cholecystectomy 04/19 LFTs trending down SIRS Met criteria on admission with tachycardia and leukocytosis Procalcitonin elevated WBC within normal limit now received Cefoxitin in the ER on IV ertapenem while inpt - stopped now Blood cx - negative Continue monitor Transaminitis Liver enzymes elevated with AST 288, ALT 286 and ALK 325 LFT continue to trend down with AST 41, ALT 95 and ALK 215 RUQ ultrasound showed cholelithiasis and biliary sludge with no sonographic evidence of acute cholecystitis. There is no intra or extrahepatic biliary ductal dilatation. GI consulted MRCP showed cholelithiasis with gallbladder distention. No gallbladder wall thickening or pericholecystic fluid identified to suggest acute cholecystitis. Continue monitor LFT - trending down AST, ALT normal now, alk phos 185 Hyponatremia Possible related to poor oral intake/vomiting Na 125 and urine osmolarity low on admission Na 135 today received gentle IVF Continue monitor BMP Right Adnexa mass Vaginal U/S showed 13.7 cm largely simple appearing cystic lesion in the right adnexa, likely related to the right ovary. MRCP showed Large pelvic cystic mass re-demonstrated, suspicious for an ovarian epithelial neoplasm. Gynecology consulted Ca 125 level 18 Daughter Loretta was informed about the pelvis mass on the the phone and she understands that pt need to be followed with Gynecology will likely need to be seen by [facility] oncology in [place] if she is a surgical candidate Elevate glucose Hgba1c 5.5% Continue monitor glucose DVT - SCDs CODE Status Full code Patient daughter - Ms. Reina Resendiz, contact #[phone]. Admission and Anticipated Discharge Date Admission Date: April 16, 2022 Subjective Pt was seen and examined for follow up of abdominal pain and elevated liver enzymes s/p cholecystectomy Currently sitting up in chair in no acute distress, eating breakfast Has some mild abd. pain, but overall feels better Reports that she has been moving bowels Previous hospitalist spoke to daughter in detail about the right pelvis mass that patient needs to follow with Gynecology outpatient Denies any chest pain, palpitation, dizziness and SOB PT/OT eval obtained - recommend rehab -CM involved Review of Systems Review of Systems: All systems reviewed & are unremarkable except as noted in Subjective Physical Exam Physical Exam: General- elderly F in no acute distress Head- atraumatic Eyes- PERRL, EOMI ENT- oropharynx clear Neck- supple Lungs- clear to auscultation Heart- regular rhythm; no murmur Abdomen- Normal bowel sounds, Non tenderness Extremities- no calf tenderness, moves extremities Neuro- alert, oriented x 3; PERRL, EOMI; no facial palsy; no dysarthria, moves extremities Skin- warm & dry Results & Data Results & Data ([facility]) Vital Signs (Past 12 Hours) Vital Signs Temp Pulse Pulse Pulse Resp BP BP 04/23/22 07:33 36.9 C 77 18 134/76 04/23/22 03:25 37 C 75 20 122/69 04/22/22 22:15 71 04/22/22 23:00 04/22/22 22:21 36.6 C 75 18 148/75 H 04/22/22 19:54 36.6 C 78 18 153/54 H Pulse Ox Pulse Ox O2 Del Method O2 Del Method 04/23/22 07:33 94 Room Air 04/23/22 03:25 92 Room Air 04/22/22 22:15 04/22/22 23:00 95 Room Air 04/22/22 22:21 95 Room Air 04/22/22 19:54 94 Room Air Laboratory Results 04/23/22 04/23/22 Range/Units 06:42 06:42 WBC 12.18 H (4.8-10.8) K/ul RBC 4.73 (3.93-5.22) M/uL Hgb 13.7 (12.0-16.0) g/dl Hct 41.2 (34.1-44.9) % MCV 87.1 (80.0-100.0) fL MCH 29.0 (25.0-34.0) pg MCHC 33.3 (32.0-36.0) g/dL RDW Std Deviation 43.4 (36.4-46.3) fL RDW Coeff of Naresh 13.6 (11.5-14.5) % Plt Count 389 (130-400) K/uL MPV 9.8 (9.4-12.3) fL Sodium 135 L (136-145) mmol/L Potassium 4.1 (3.5-5.1) mmol/L Chloride 98 (98-107) mmol/L Carbon Dioxide 31 (21-32) mmol/L Anion Gap 6 (3-11) BUN 10 (6-23) mg/dl Creatinine 0.52 L (0.6-1.2) mg/dl Est Cr Clr Drug Dosing 68.2 ml/min Est GFR ( Amer) 98.2 ml/min Est GFR (Non-Af Amer) 84.7 ml/min BUN/Creatinine Ratio 19.2 (10-20) Glucose 107 H (70-99(Fasting)) mg/dl Calcium 8.9 (8.5-10.1) mg/dl Total Bilirubin 0.8 (0.2-1.0) mg/dl AST 16 (13-39) U/L ALT 38 (7-52) U/L Alkaline Phosphatase 183 H (34-104) U/L Total Protein 6.8 (6.0-8.3) gm/dl Albumin 3.5 (3.4-5.0) gm/dl Globulin 3.3 (2.5-4.0) gm/dl Albumin/Globulin Ratio 1.1 (0.9-2) Medications Administered Current Inpatient Medications Acetaminophen (Acetaminophen 500 Mg Tab) 500 mg PO Q6H PRN PRN Reason: pain/fever Stop: 05/16/22 23:38 Last Admin: 04/22/22 11:01 Dose: 500 mg Amlodipine Besylate (Amlodipine Besylate 5 Mg Tab) 5 mg PO DAILY [facility] Stop: 05/17/22 08:59 Last Admin: 04/22/22 10:56 Dose: 5 mg Promethazine HCl 6.25 mg/ (Sodium Chloride) 50.25 mls @ 201 mls/hr IV Q6H PRN PRN Reason: Nausea And Vomiting Stop: 05/16/22 22:57 Levothyroxine Sodium (Levothyroxine Sodium 25 Mcg Tablet) 25 mcg PO DAILYBB [facility] Stop: 05/17/22 06:29 Last Admin: 04/23/22 06:12 Dose: 25 mcg Lisinopril (Lisinopril 10 Mg Tab) 30 mg PO DAILY [facility] Stop: 05/17/22 08:59 Last Admin: 04/22/22 10:56 Dose: 30 mg Loratadine (Loratadine 10 Mg Tab) 10 mg PO DAILY PRN PRN Reason: Allergy Symptoms Stop: 05/16/22 23:38 Last Admin: 04/17/22 07:58 Dose: 10 mg Lorazepam (Lorazepam 0.5 Mg Tab) 0.25 mg PO TID PRN PRN Reason: Anxiety Stop: 05/16/22 22:51 Magnesium Oxide (Magnesium Oxide 400 Mg Tab) 400 mg PO BID [facility] Stop: 05/21/22 08:59 Last Admin: 04/22/22 20:39 Dose: 400 mg Menthol (Cough Drop (Sugar Free) Izabella 24 Izabella/1 Box) 1 izabella BUCCAL Q3H PRN PRN Reason: Sore Throat Stop: 05/20/22 07:49 Metoprolol Tartrate (Metoprolol Tartrate 50 Mg Tab) 50 mg PO BID [facility] Stop: 05/17/22 08:59 Last Admin: 04/22/22 20:39 Dose: 50 mg Morphine Sulfate (Morphine Sulfate 2 Mg/Ml Carp) 2 mg IV Q3H PRN PRN Reason: Pain Stop: 04/30/22 22:53 Ondansetron HCl (Ondansetron Inj 2 Mg/Ml 2 Ml Vial) 4 mg IV Q6H PRN PRN Reason: Nausea And Vomiting Stop: 05/17/22 08:51 Last Admin: 04/17/22 09:15 Dose: 4 mg Oxycodone HCl (Oxycodone Hcl Ir 5 Mg Tab (Immediate Release)) 5 mg PO Q4H PRN PRN Reason: Pain Stop: 04/30/22 22:55 Last Admin: 04/19/22 21:21 Dose: 5 mg Pantoprazole Sodium (Pantoprazole 40 Mg Tab) 40 mg PO BID [facility] Stop: 05/17/22 08:59 Last Admin: 04/22/22 20:39 Dose: 40 mg Polyethylene Glycol (Polyethylene (Miralax) 17 Gm Pack) 17 gm PO DAILY PRN PRN Reason: Constipation Stop: 05/16/22 23:38
[2022-04-23 07:56] LABS: Albumin Globulin Ratio 1.1 (0.9-2); Albumin Level 3.5 gm/dl (3.4-5.0); BUN Creatinine Ratio 19.2 (10-20); Bilirubin,Total 0.8 mg/dl (0.2-1.0); Calcium 8.9 mg/dl (8.5-10.1); Creatinine Clr Calc Pharmacy 68.2 ml/min; Est GFR (African American) 98.2 ml/min; Est GFR (Non-African American) 84.7 ml/min; Globulin 3.3 gm/dl (2.5-4.0); Potassium 4.1 mmol/L (3.5-5.1); Total Protein 6.8 gm/dl (6.0-8.3)
[2022-04-23] MEDS: PANTOprazole 40 MG TAB PO SCH ×2 (09:03→21:27)
[2022-04-23] MEDS: MAGNESIUM OXIDE 400 MG TAB PO SCH ×2 (09:03→21:27)
[2022-04-23] MEDS: ACETAMINOPHEN 500 MG TAB PO PRN (09:03)
[2022-04-23] MEDS: METOPROLOL TARTRATE 50 MG TAB PO SCH ×2 (09:03→21:27)
[2022-04-23] MEDS: lisinopril 10 MG TAB PO SCH (09:04)
[2022-04-23] MEDS: amLODIPine BESYLATE 5 MG TAB PO SCH (09:04)
[2022-04-24] MEDS: LEVOTHYROXINE SODIUM 25 MCG TABLET PO SCH (06:06)
[2022-04-24 07:22] LABS: Hematocrit (blood only) 39.7 % (34.1-44.9); Hemoglobin 13.1 g/dl (12.0-16.0); Mean Corpuscular Hemoglobin 28.9 pg (25.0-34.0); Mean Corpuscular Volume 87.4 fL (80.0-100.0); Mean Platelet Volume 9.7 fL (9.4-12.3); Platelet Count 380 K/uL (130-400); RDW Coefficient of Variation 13.6 % (11.5-14.5); RDW Standard Deviation 43.5 fL (36.4-46.3); Red Blood Count 4.54 M/uL (3.93-5.22); White Blood Count 11.39 K/ul (4.8-10.8)
[2022-04-24 07:52] LABS: Albumin Globulin Ratio 1.1 (0.9-2); Albumin Level 3.4 gm/dl (3.4-5.0); BUN Creatinine Ratio 25.5 (10-20); Bilirubin,Total 0.8 mg/dl (0.2-1.0); Creatinine Clr Calc Pharmacy 77.7 ml/min; Est GFR (African American) 101.5 ml/min; Est GFR (Non-African American) 87.6 ml/min; Globulin 3.2 gm/dl (2.5-4.0); Magnesium 1.8 mg/dl (1.7-2.4); Phosphorus 3.5 mg/dl (2.5-4.9); Potassium 4.1 mmol/L (3.5-5.1); Total Protein 6.6 gm/dl (6.0-8.3)
[2022-04-24] MEDS: PANTOprazole 40 MG TAB PO SCH ×2 (07:57→20:16)
[2022-04-24] MEDS: MAGNESIUM OXIDE 400 MG TAB PO SCH ×2 (07:58→20:16)
[2022-04-24] MEDS: METOPROLOL TARTRATE 50 MG TAB PO SCH ×2 (07:58→20:16)
[2022-04-24] MEDS: amLODIPine BESYLATE 5 MG TAB PO SCH (07:58)
[2022-04-24] MEDS: lisinopril 10 MG TAB PO SCH (07:58)
--- NOTE | 2022-04-24 08:33 | Hospitalist Progress Note ---
Date of Service April 24, 2022 Assessment & Plan (1) Abdominal pain: (2) Cholelithiasis: Plan: Present on admission with RUQ abdominal pain associated with nausea with emesis CT abd/pelvis showed cholelithiasis within a distended gallbladder. RUQ ultrasound showed cholelithiasis and biliary sludge with no sonographic evidence of acute cholecystitis. There is no intra or extrahepatic biliary ductal dilatation. MRCP showed cholelithiasis with gallbladder distention. No gallbladder wall thickening or pericholecystic fluid identified to suggest acute cholecystitis. Surgery and GI consulted No plan for ERCP/EUS since MRCP wo choledocholithiasis or biliary ductal dilation Continued abx with IV ertapenem - now stopped Continue pain control and antiemetic S/p laparoscopic cholecystectomy 04/19 LFTs trending down SIRS Met criteria on admission with tachycardia and leukocytosis Procalcitonin elevated WBC within normal limit now received Cefoxitin in the ER on IV ertapenem while inpt - stopped now Blood cx - negative Continue monitor Transaminitis Liver enzymes elevated with AST 288, ALT 286 and ALK 325 LFT continue to trend down with AST 41, ALT 95 and ALK 215 RUQ ultrasound showed cholelithiasis and biliary sludge with no sonographic evidence of acute cholecystitis. There is no intra or extrahepatic biliary ductal dilatation. GI consulted MRCP showed cholelithiasis with gallbladder distention. No gallbladder wall thickening or pericholecystic fluid identified to suggest acute cholecystitis. Continue monitor LFT - trending down AST, ALT normal now, alk phos 160s Hyponatremia Possible related to poor oral intake/vomiting Na 125 and urine osmolarity low on admission Na 134 today received gentle IVF Continue monitor BMP Right Adnexa mass Vaginal U/S showed 13.7 cm largely simple appearing cystic lesion in the right adnexa, likely related to the right ovary. MRCP showed Large pelvic cystic mass re-demonstrated, suspicious for an ovarian epithelial neoplasm. Gynecology consulted Ca 125 level 18 Daughter Loretta was informed about the pelvis mass on the the phone and she understands that pt need to be followed with Gynecology will likely need to be seen by [facility] oncology in [place] if she is a surgical candidate Elevate glucose Hgba1c 5.5% Continue monitor glucose DVT - SCDs CODE Status Full code Patient daughter - Ms. Reina Resendiz, contact #[phone]. Admission and Anticipated Discharge Date Admission Date: April 16, 2022 Subjective Pt was seen and examined for follow up of abdominal pain and elevated liver enzymes s/p cholecystectomy Currently sitting up in chair in no acute distress, eating lunch Has some mild abd. pain, but overall feels much better Reports that she has been moving bowels Denies any chest pain, palpitation, dizziness and SOB PT/OT eval obtained - recommend rehab -CM involved Daughter at the bedside updated. Review of Systems Review of Systems: All systems reviewed & are unremarkable except as noted in Subjective Physical Exam Physical Exam: General- elderly F in no acute distress Head- atraumatic Eyes- PERRL, EOMI ENT- oropharynx clear Neck- supple Lungs- clear to auscultation Heart- regular rhythm; no murmur Abdomen- Normal bowel sounds, Non tenderness Extremities- no calf tenderness, moves extremities Neuro- alert, oriented x 3; PERRL, EOMI; no facial palsy; no dysarthria, moves extremities Skin- warm & dry Results & Data Results & Data ([facility]) Vital Signs (Past 12 Hours) Vital Signs Temp Pulse Pulse Resp BP BP Pulse Ox 04/24/22 07:29 36.8 C 73 18 146/76 H 91 04/23/22 22:02 81 04/24/22 03:00 36.8 C 82 16 129/68 97 04/23/22 23:00 04/23/22 23:26 37 C 80 18 146/70 H 95 O2 Del Method O2 Del Method 04/24/22 07:29 Room Air 04/23/22 22:02 04/24/22 03:00 Room Air 04/23/22 23:00 Room Air 04/23/22 23:26 Room Air Laboratory Results 04/24/22 04/24/22 Range/Units 06:30 06:30 WBC 11.39 H (4.8-10.8) K/ul RBC 4.54 (3.93-5.22) M/uL Hgb 13.1 (12.0-16.0) g/dl Hct 39.7 (34.1-44.9) % MCV 87.4 (80.0-100.0) fL MCH 28.9 (25.0-34.0) pg MCHC 33.0 (32.0-36.0) g/dL RDW Std Deviation 43.5 (36.4-46.3) fL RDW Coeff of Naresh 13.6 (11.5-14.5) % Plt Count 380 (130-400) K/uL MPV 9.7 (9.4-12.3) fL Sodium 134 L (136-145) mmol/L Potassium 4.1 (3.5-5.1) mmol/L Chloride 98 (98-107) mmol/L Carbon Dioxide 28 (21-32) mmol/L Anion Gap 8 (3-11) BUN 12 (6-23) mg/dl Creatinine 0.47 L (0.6-1.2) mg/dl Est Cr Clr Drug Dosing 77.7 ml/min Est GFR ( Amer) 101.5 ml/min Est GFR (Non-Af Amer) 87.6 ml/min BUN/Creatinine Ratio 25.5 H (10-20) Glucose 101 H (70-99(Fasting)) mg/dl Calcium 9.0 (8.5-10.1) mg/dl Phosphorus 3.5 (2.5-4.9) mg/dl Magnesium 1.8 (1.7-2.4) mg/dl Total Bilirubin 0.8 (0.2-1.0) mg/dl AST 13 (13-39) U/L ALT 28 (7-52) U/L Alkaline Phosphatase 163 H (34-104) U/L Total Protein 6.6 (6.0-8.3) gm/dl Albumin 3.4 (3.4-5.0) gm/dl Globulin 3.2 (2.5-4.0) gm/dl Albumin/Globulin Ratio 1.1 (0.9-2) Medications Administered Current Inpatient Medications Acetaminophen (Acetaminophen 500 Mg Tab) 500 mg PO Q6H PRN PRN Reason: pain/fever Stop: 05/16/22 23:38 Last Admin: 04/23/22 09:03 Dose: 500 mg Amlodipine Besylate (Amlodipine Besylate 5 Mg Tab) 5 mg PO DAILY [facility] Stop: 05/17/22 08:59 Last Admin: 04/24/22 07:58 Dose: 5 mg Promethazine HCl 6.25 mg/ (Sodium Chloride) 50.25 mls @ 201 mls/hr IV Q6H PRN PRN Reason: Nausea And Vomiting Stop: 05/16/22 22:57 Levothyroxine Sodium (Levothyroxine Sodium 25 Mcg Tablet) 25 mcg PO DAILYBB [facility] Stop: 05/17/22 06:29 Last Admin: 04/24/22 06:06 Dose: 25 mcg Lisinopril (Lisinopril 10 Mg Tab) 30 mg PO DAILY [facility] Stop: 05/17/22 08:59 Last Admin: 04/24/22 07:58 Dose: 30 mg Loratadine (Loratadine 10 Mg Tab) 10 mg PO DAILY PRN PRN Reason: Allergy Symptoms Stop: 05/16/22 23:38 Last Admin: 04/17/22 07:58 Dose: 10 mg Lorazepam (Lorazepam 0.5 Mg Tab) 0.25 mg PO TID PRN PRN Reason: Anxiety Stop: 05/16/22 22:51 Magnesium Oxide (Magnesium Oxide 400 Mg Tab) 400 mg PO BID [facility] Stop: 05/21/22 08:59 Last Admin: 04/24/22 07:58 Dose: 400 mg Menthol (Cough Drop (Sugar Free) Izabella 24 Izabella/1 Box) 1 izabella BUCCAL Q3H PRN PRN Reason: Sore Throat Stop: 05/20/22 07:49 Metoprolol Tartrate (Metoprolol Tartrate 50 Mg Tab) 50 mg PO BID [facility] Stop: 05/17/22 08:59 Last Admin: 04/24/22 07:58 Dose: 50 mg Morphine Sulfate (Morphine Sulfate 2 Mg/Ml Carp) 2 mg IV Q3H PRN PRN Reason: Pain Stop: 04/30/22 22:53 Ondansetron HCl (Ondansetron Inj 2 Mg/Ml 2 Ml Vial) 4 mg IV Q6H PRN PRN Reason: Nausea And Vomiting Stop: 05/17/22 08:51 Last Admin: 04/17/22 09:15 Dose: 4 mg Oxycodone HCl (Oxycodone Hcl Ir 5 Mg Tab (Immediate Release)) 5 mg PO Q4H PRN PRN Reason: Pain Stop: 04/30/22 22:55 Last Admin: 04/19/22 21:21 Dose: 5 mg Pantoprazole Sodium (Pantoprazole 40 Mg Tab) 40 mg PO BID [facility] Stop: 05/17/22 08:59 Last Admin: 04/24/22 07:57 Dose: 40 mg Polyethylene Glycol (Polyethylene (Miralax) 17 Gm Pack) 17 gm PO DAILY PRN PRN Reason: Constipation Stop: 05/16/22 23:38
[2022-04-25] MEDS: LEVOTHYROXINE SODIUM 25 MCG TABLET PO SCH (06:21)
[2022-04-25] MEDS: lisinopril 10 MG TAB PO SCH (08:39)
[2022-04-25] MEDS: MAGNESIUM OXIDE 400 MG TAB PO SCH (08:39)
[2022-04-25] MEDS: METOPROLOL TARTRATE 50 MG TAB PO SCH (08:39)
[2022-04-25] MEDS: PANTOprazole 40 MG TAB PO SCH (08:39)
[2022-04-25] MEDS: amLODIPine BESYLATE 5 MG TAB PO SCH (08:39)
--- NOTE | 2022-04-25 08:43 | Hospitalist Progress Note ---
Date of Service April 25, 2022 Assessment & Plan (1) Abdominal pain: (2) Cholelithiasis: Plan: Present on admission with RUQ abdominal pain associated with nausea with emesis CT abd/pelvis showed cholelithiasis within a distended gallbladder. RUQ ultrasound showed cholelithiasis and biliary sludge with no sonographic evidence of acute cholecystitis. There is no intra or extrahepatic biliary ductal dilatation. MRCP showed cholelithiasis with gallbladder distention. No gallbladder wall thickening or pericholecystic fluid identified to suggest acute cholecystitis. Surgery and GI consulted No plan for ERCP/EUS since MRCP wo choledocholithiasis or biliary ductal dilation Continued abx with IV ertapenem - finished abx course Continue pain control and antiemetic S/p laparoscopic cholecystectomy 04/19 LFTs trending down SIRS Met criteria on admission with tachycardia and leukocytosis Procalcitonin elevated WBC within normal limit now received Cefoxitin in the ER on IV ertapenem while inpt - finished abs course Blood cx - negative Continue monitor Transaminitis Liver enzymes elevated with AST 288, ALT 286 and ALK 325 LFT continue to trend down with AST 41, ALT 95 and ALK 215 RUQ ultrasound showed cholelithiasis and biliary sludge with no sonographic evidence of acute cholecystitis. There is no intra or extrahepatic biliary ductal dilatation. GI consulted MRCP showed cholelithiasis with gallbladder distention. No gallbladder wall thickening or pericholecystic fluid identified to suggest acute cholecystitis. Continue monitor LFT - trending down AST, ALT normal now, alk phos 160s Hyponatremia Possible related to poor oral intake/vomiting Na 125 and urine osmolarity low on admission Na 134 now received gentle IVF Continue monitor BMP Right Adnexa mass Vaginal U/S showed 13.7 cm largely simple appearing cystic lesion in the right adnexa, likely related to the right ovary. MRCP showed Large pelvic cystic mass re-demonstrated, suspicious for an ovarian epithelial neoplasm. Gynecology consulted Ca 125 level 18 Daughter Loretta was informed about the pelvis mass on the the phone and she understands that pt need to be followed with Gynecology will likely need to be seen by [facility] oncology in [place] if she is a surgical candidate Elevate glucose Hgba1c 5.5% Continue monitor glucose DVT - SCDs CODE Status Full code Patient daughter - Ms. Reina Resendiz, contact #[phone]. Admission and Anticipated Discharge Date Admission Date: April 16, 2022 Subjective Pt was seen and examined for follow up of abdominal pain and elevated liver enzymes s/p cholecystectomy Currently sitting up in chair in no acute distress Has minimal mild abd. pain, but overall feels much better Reports that she has been moving bowels Denies any chest pain, palpitation, dizziness and SOB PT/OT eval obtained - recommend rehab -CM involved Review of Systems Review of Systems: All systems reviewed & are unremarkable except as noted in Subjective Physical Exam Physical Exam: General- elderly F in no acute distress Head- atraumatic Eyes- PERRL, EOMI ENT- oropharynx clear Neck- supple Lungs- clear to auscultation Heart- regular rhythm; no murmur Abdomen- Normal bowel sounds, Non tenderness Extremities- no calf tenderness, moves extremities Neuro- alert, oriented x 3; PERRL, EOMI; no facial palsy; no dysarthria, moves extremities Skin- warm & dry Results & Data Results & Data ([facility]) Vital Signs (Past 12 Hours) Vital Signs Temp Pulse Resp BP BP Pulse Ox O2 Del Method 04/25/22 07:28 37 C 78 17 129/70 95 Room Air 04/24/22 22:55 37.1 C 80 20 119/67 94 Room Air Medications Administered Current Inpatient Medications Acetaminophen (Acetaminophen 500 Mg Tab) 500 mg PO Q6H PRN PRN Reason: pain/fever Stop: 05/16/22 23:38 Last Admin: 04/23/22 09:03 Dose: 500 mg Amlodipine Besylate (Amlodipine Besylate 5 Mg Tab) 5 mg PO DAILY [facility] Stop: 05/17/22 08:59 Last Admin: 04/25/22 08:39 Dose: 5 mg Promethazine HCl 6.25 mg/ (Sodium Chloride) 50.25 mls @ 201 mls/hr IV Q6H PRN PRN Reason: Nausea And Vomiting Stop: 05/16/22 22:57 Levothyroxine Sodium (Levothyroxine Sodium 25 Mcg Tablet) 25 mcg PO DAILYBB [facility] Stop: 05/17/22 06:29 Last Admin: 04/25/22 06:21 Dose: 25 mcg Lisinopril (Lisinopril 10 Mg Tab) 30 mg PO DAILY [facility] Stop: 05/17/22 08:59 Last Admin: 04/25/22 08:39 Dose: 30 mg Loratadine (Loratadine 10 Mg Tab) 10 mg PO DAILY PRN PRN Reason: Allergy Symptoms Stop: 05/16/22 23:38 Last Admin: 04/17/22 07:58 Dose: 10 mg Lorazepam (Lorazepam 0.5 Mg Tab) 0.25 mg PO TID PRN PRN Reason: Anxiety Stop: 05/16/22 22:51 Magnesium Oxide (Magnesium Oxide 400 Mg Tab) 400 mg PO BID [facility] Stop: 05/21/22 08:59 Last Admin: 04/25/22 08:39 Dose: 400 mg Menthol (Cough Drop (Sugar Free) Izabella 24 Izabella/1 Box) 1 izabella BUCCAL Q3H PRN PRN Reason: Sore Throat Stop: 05/20/22 07:49 Metoprolol Tartrate (Metoprolol Tartrate 50 Mg Tab) 50 mg PO BID [facility] Stop: 05/17/22 08:59 Last Admin: 04/25/22 08:39 Dose: 50 mg Morphine Sulfate (Morphine Sulfate 2 Mg/Ml Carp) 2 mg IV Q3H PRN PRN Reason: Pain Stop: 04/30/22 22:53 Ondansetron HCl (Ondansetron Inj 2 Mg/Ml 2 Ml Vial) 4 mg IV Q6H PRN PRN Reason: Nausea And Vomiting Stop: 05/17/22 08:51 Last Admin: 04/17/22 09:15 Dose: 4 mg Oxycodone HCl (Oxycodone Hcl Ir 5 Mg Tab (Immediate Release)) 5 mg PO Q4H PRN PRN Reason: Pain Stop: 04/30/22 22:55 Last Admin: 04/19/22 21:21 Dose: 5 mg Pantoprazole Sodium (Pantoprazole 40 Mg Tab) 40 mg PO BID [facility] Stop: 05/17/22 08:59 Last Admin: 04/25/22 08:39 Dose: 40 mg Polyethylene Glycol (Polyethylene (Miralax) 17 Gm Pack) 17 gm PO DAILY PRN PRN Reason: Constipation Stop: 05/16/22 23:38
--- NOTE | 2022-04-25 15:41 | Discharge Summary ---
Date of Service April 25, 2022 Admission HPI Per Admitting Provider History obtained from patient, family, and records. Medical history significant for hypertension, hypothyroidism, chronic hyponatremia, GERD, migraine, mood disorder. Last confinement 2017 for headache, uncontrolled hypertension. 6 days history of achy epigastric pain going to her chest somewhat worse after eating. Some chills. No shortness of breath. No headache symptoms. No prior episodes. Cefoxitin administered at the ER for possible cholecystitis. Highest SBP at the ER 190s. Medical History as above Surgical History : Cataract surgery Family History : Ovarian cancer, colon cancer, dementia Personal/Social history : Non-smoker, no EtOH intake, retired from cleaning work Admission Exam Per Admitting Provider GENERAL: uncomfortable, anxious, slightly hard of hearing, looks younger for stated age, no respiratory distress SKIN: Normal color, warm HEENT: Bespectacled, Belk palpebral conjunctivae, no ptosis, dry buccal mucosa NECK : Supple, no tenderness CHEST : CTA, no tenderness HEART : RRR, no obvious murmurs ABDOMEN: Some distention, epigastric tenderness EXTREMITIES : Minimal LE swelling, no LE tenderness, no other conspicuous deformities noted NEUROLOGIC : Coherent, no facial asymmetry, slightly hard of hearing, no other gross focality Principal Diagnosis Sepsis, cholecystitis, elevated LFTs, abdominal pain, now status post cholecystectomy Discharge Exam General- elderly F in no acute distress Head- atraumatic Eyes- PERRL, EOMI ENT- oropharynx clear Neck- supple Lungs- clear to auscultation Heart- regular rhythm; no murmur Abdomen- Normal bowel sounds, Non tenderness Extremities- no calf tenderness, moves extremities Neuro- alert, oriented x 3; PERRL, EOMI; no facial palsy; no dysarthria, moves extremities Skin- warm & dry Discharge Data Allergies Allergy/AdvReac Type Severity Reaction Status Date / Time doxycycline Allergy Intermediate RED ALL Verified 04/16/22 20:11 OVER Sulfa (Sulfonamide Allergy Unknown CAN'T Verified 04/16/22 20:11 Antibiotics) REMEMBER Penicillins AdvReac Severe nausea/vomi Verified 04/16/22 20:11 ting Consultations 04/16/22 21:50 Consult General Surgery Stat 04/16/22 21:53 ED Decision to Admit Stat 04/17/22 06:56 Consult Gastroenterology Routine 04/18/22 10:15 Consult Gynecology Routine Procedures Performed Operation Date: 04/19/22 09:10 Actual Procedures p Laparoscopic Cholecystectomy - Jonathon Breen, DO Ordered Studies 04/16/22 20:08 CT abd pelvis IV con only Stat FINDINGS: Lung bases: The heart is normal in size and without pericardial effusion. The coronary arteries and mitral annulus are densely calcified. There is a moderate hiatal hernia. The lung bases are clear noting mild bibasilar scarring/atelectasis. Liver: The contrast-enhanced liver is normal in size, contour, and attenuation. There is no intrahepatic biliary ductal dilatation. The hepatic veins and portal veins are patent. Gallbladder: The gallbladder is distended and there are small calcified gallstones. There is no CT evidence of acute cholecystitis. Spleen: Normal in size and attenuation. Pancreas: Unremarkable. Adrenal glands: Unremarkable. Kidneys: The contrast enhanced kidneys are normal in size and without hydronephrosis. The kidneys enhance symmetrically. Abdominal vasculature: The abdominal aorta is normal in course and caliber noting advanced atherosclerotic calcification. Bowel: There is no bowel obstruction. Mild fecal retention is seen in the colon. A duodenal diverticulum is incidentally noted. The appendix is well-visualized and normal. Peritoneum: There is no intraperitoneal free air or abdominal ascites. Lymphadenopathy: None. Pelvic viscera: The bladder is normal as visualized. The endometrium appears thickened for age, measuring up to 6 mm in thickness. There is a 13.7 cm predominantly cystic lesion in the right adnexa, likely related to the right ovary. There are small calcifications seen posteriorly. No enhancing nodularity or soft tissue component is identified. Skeletal structures: The skeletal structures are osteopenic. There is mild to moderate lumbosacral spondylosis. No lytic or blastic lesions are seen. IMPRESSION: 1. Cholelithiasis within a distended gallbladder. There is no clear CT evidence of acute cholecystitis. Correlate with clinical and laboratory findings. If there is clinical concern for acute cholecystitis a right upper quadrant ultrasound should be considered. 2. There is a 13.7 cm largely simple appearing cystic lesion in the right adnexa, likely related to the right ovary. No ovarian neoplasm is the diagnosis of exclusion. Additionally, the endometrium appears abnormally thickened for age. Gynecology evaluation is advised. 3. Moderate hiatal hernia. 4. Additional findings as above. 04/17/22 03:00 US pelvic complete Routine FINDINGS: Uterus: The uterus is normal in size and heterogeneous in echotexture, measuring 7.4 x 2.4 x 5.1 cm. Endometrium: The endometrium is thickened for age, measuring up to 1.2 cm. Ovaries: There is a 14.2 x 9.9 x 9.7 cm, cystic lesion in the right hemipelvis. This is likely related to the right ovary. There are calcifications within the wall of this lesion with minimal nodularity. The left ovary was not visualized. Pelvis: There is no free fluid in the cul-de-sac. IMPRESSION: 1. Again seen is a 14.2 cm predominantly cystic lesion in the right adnexa, likely related to the right ovary. An ovarian neoplasm is the diagnosis of exclusion. Gynecology follow up is recommended. 2. The endometrium is abnormally thickened for age measuring up to 1.2 cm. Gynecology follow-up is recommended. 04/17/22 06:52 US liver Urgent FINDINGS: Liver: The liver is normal in size and echotexture. There is no intrahepatic biliary ductal dilatation. The main portal vein is patent. Gallbladder: The gallbladder is distended, and contains both gallstones and biliary sludge. There is no gallbladder wall thickening or pericholecystic fluid. A sonographic Walter's sign is reportedly absent. The common bile duct measures up to 0.4 cm in diameter. Pancreas: Visualized portions of the pancreatic head and body are normal in appearance. Right kidney: Survey images of the right kidney demonstrate normal size and echotexture. There is no hydronephrosis. Ascites: None. IMPRESSION: 1. Cholelithiasis and biliary sludge with no sonographic evidence of acute cho lecystitis. If there is strong clinical concern for acute cholecystitis a nuclear hepatobiliary scan could be considered. 2. There is no intra or extrahepatic biliary ductal dilatation. 04/18/22 08:38 MR MRCP Routine FINDINGS: Partially imaged cystic lesion of the pelvis redemonstrated measuring up to approximately 14 cm compressing the urinary bladder. Multilevel degenerative changes of the spine are redemonstrated with annular disc bulging most pronounced at L3-L4 and L4-L5. The heart is upper limits of normal in size. Moderate sized hiatal hernia. The lung bases. Visualized portions of the spleen, pancreas and adrenal glands are unremarkable. The liver is within normal limits. No hydronephrosis. Mild perinephric stranding bilaterally. No abdominal aortic aneurysm or lymphadenopathy. No bowel obstruction, bowel wall thickening or abdominal free fluid identified. Cholelithiasis with gallbladder distention. No gallbladder wall thickening or pericholecystic fluid identified. The common bile duct is normal measuring up to 5 mm transversely. No choledocholithiasis identified. No pancreatic ductal dilation or pancreatic divisum identified. IMPRESSION: 1. Cholelithiasis with gallbladder distention. No gallbladder wall thickening or pericholecystic fluid identified to suggest acute cholecystitis. 2. No choledocholithiasis or biliary ductal dilation. 3. Large pelvic cystic mass re-demonstrated, suspicious for an ovarian epithelial neoplasm. 4. Moderate sized hiatal hernia. Hospital Course (1) Abdominal pain: (2) Cholelithiasis: Present on admission with RUQ abdominal pain associated with nausea with emesis CT abd/pelvis showed cholelithiasis within a distended gallbladder. RUQ ultrasound showed cholelithiasis and biliary sludge with no sonographic evidence of acute cholecystitis. There is no intra or extrahepatic biliary ductal dilatation. MRCP showed cholelithiasis with gallbladder distention. No gallbladder wall thickening or pericholecystic fluid identified to suggest acute cholecystitis. Surgery and GI consulted No plan for ERCP/EUS since MRCP wo choledocholithiasis or biliary ductal dilation Continued abx with IV ertapenem - finished abx course Continue pain control and antiemetic S/p laparoscopic cholecystectomy 04/19 LFTs trending down SIRS Met criteria on admission with tachycardia and leukocytosis Procalcitonin elevated WBC within normal limit now received Cefoxitin in the ER on IV ertapenem while inpt - finished abs course Blood cx - negative Continue monitor Transaminitis Liver enzymes elevated with AST 288, ALT 286 and ALK 325 LFT continue to trend down with AST 41, ALT 95 and ALK 215 RUQ ultrasound showed cholelithiasis and biliary sludge with no sonographic evidence of acute cholecystitis. There is no intra or extrahepatic biliary ductal dilatation. GI consulted MRCP showed cholelithiasis with gallbladder distention. No gallbladder wall thickening or pericholecystic fluid identified to suggest acute cholecystitis. Continue monitor LFT - trending down AST, ALT normal now, alk phos 160s Hyponatremia Possible related to poor oral intake/vomiting Na 125 and urine osmolarity low on admission Na 134 now received gentle IVF Continue monitor BMP Right Adnexa mass Vaginal U/S showed 13.7 cm largely simple appearing cystic lesion in the right adnexa, likely related to the right ovary. MRCP showed Large pelvic cystic mass re-demonstrated, suspicious for an ovarian epithelial neoplasm. Gynecology consulted CA-125 level 18 Daughter Loretta was informed about the pelvis mass on the the phone and she understands that pt needs to be followed with Gynecology will likely need to be seen by [facility] in [place] if she is a surgical candidate Elevated glucose Hgba1c 5.5% Continue monitor glucose Total Time Total Time Spent Total Time Spent (In Minutes): 40 Discharge Plan Discharge Items Patient Disposition: Home - Self-Care Reason For Visit: SEPSIS Discharge Diagnosis: Sepsis, cholecystitis, elevated LFTs, abdominal pain, now status post cholecystectomy Activity: Per Instructions section Lifting: No more than 10 pounds Bathing Comment: may shower; no soaking in tubs/pools Exercise/Sports: Wait until after follow-up appointment Driving/Machine Use: no driving while taking any narcotics for pain Non-emergency contact: Primary Care Provider and Surgeon Call non-emergency contact if: you have any medication questions, your symptoms worsen, your pain is not controlled, your pain is concerning for you, you have a fever, your temperature is above 101.5, your wound has increased redness, your wound has increased drainage and your wound pain has increased Follow-up/Referrals: Jonathon Breen DO [Surgeon] - (Please call to schedule follow up in clinic within 2 weeks) Tony Hein MD [Primary Care Provider] - (Date & Time 04/29/2022 10:00 AM Provider Tony Hein MD [facility] ) Diet: Regular Addtl Attending Provider Instructions: Follow-up with your primary care doctor and surgeon. Follow-up with surgery in 2 weeks, as above. The appointment with your primary care doctor was scheduled for you for April 29. It is expected to have some pain after surgery, take oxycodone as prescribed as needed. In addition, you will need to follow-up with gynecology, as there was adnexal/ovarian mass found during this hospital stay. Pending Studies at Discharge: Yes Studies:: surgical pathology Stand-Alone Forms: My [employer], Smoking Cessation Medications and DC Order Prescriptions: New oxycodone 5 mg Tablet 5 mg PO Q4H PRN (Reason: pain) Qty: 7 0RF magnesium oxide 400 mg (241.3 mg magnesium) Tablet 400 mg PO DAILY 3 Days Qty: 3 0RF Continued levothyroxine 25 mcg tablet 25 mcg PO DAILYBB Rx Instructions: TAKE THIS MEDICATION AT LEAST 30 MINUTES BEFORE BREAKFAST OR ANY OTHER M EDICATIONS ascorbic acid (vitamin C) [Vitamin C] 500 mg Tablet 500 mg PO DAILY metoprolol tartrate 50 mg tablet 50 mg PO BID lisinopril 30 mg tablet 30 mg PO DAILY omeprazole 20 mg capsule,delayed release(DR/EC) 20 mg PO BID polyethylene glycol 3350 17 gram/dose Powder 17 g PO DAILY PRN (Reason: Constipation) loratadine 10 mg tablet 10 mg PO DAILY PRN (Reason: Allergy Symptoms) riboflavin (vitamin B2) 400 mg tablet 400 mg PO DAILY Magnesium-Zinc 1 tab PO DAILY amlodipine 2.5 mg tablet 2.5 mg PO DAILY nystatin 100,000 unit/gram powder 1 applic TOPICAL TID PRN (Reason: Skin Irritation) Discharge Orders: Discharge Order (Routine); Ordered 04/25/22 Ordered By: Santhosh Velásquez Admission Data Admit Date/Time: 04/16/22 22:50 Attending Provider: Santhosh Velásquez Admit Provider: Alon Robbins Primary Care Provider: Tony Hein Other Providers: Tory Cole ; Cece Reyes ; [facility] ; Jonathon Breen ; Alon Robbins ; Lillie Sim ; Carlos Martinez ; Deyanira Alex ; Maryjo Arriaga ; Susan Haynes ; Tiara Louie ; Sal[place],Benedicto ; Haley Galindo ; Douglas Byrd ; Sharon Navarro ; Rosy Freeman ; Juan Mann ; Raquel Broderick ; Nadia Geiger ; Carola To ; Amanda Watts ; Chiki Ramírez ; Wilfred Cárdenas ; Riccardo Castañeda ; Yessica Rose ; Omega Méndez Jr ; Abebe Jarrett
== END 2022-04-25 16:30 | disposition home health service (06) | DRG 854 ==
LOC: ED 19:29 → 2N 22:50 → SUATTDRO 22:50 → 2N 04-17 00:25